=== PATIENT | female | born 1955 | race Caucasian/White ===

== ENCOUNTER 2020-03-20 19:50 | Inpatient (IN) | payer OTHER, SELFPAY ==
[2020-03-20] VITALS (46 sets, daily range): BP systolic 116–150; BP diastolic 73–88; PULSE 74–89; RESP 12–33; TEMP 36.9; O2SAT 89–95; BMI 27.8
--- NOTE | 2020-03-20 21:35 | PM.HP ---
Providers/Chief Complaint Admitting Physician: Martin Hernandez MD Primary Care Provider: BRAULIO Hughes Chief Complaint: covid pneumonia History of Present Illness Nuris Kern is a 64 year old female who presented to the hospital from [facility] for management of hypoxic respiratory failure due to COVID-19. Patient is stating that her symptoms started about 12 days ago, she started noticing fever 103 which was associated with chills, rigors, myalgia, she has been experiencing diarrhea, and last 3 to 4 days she started experiencing vomiting, her shortness of breath started getting worse, her fever consistently stayed between 10 1-1 03F at home. She is also experiencing pleuritic chest pain which gets worse on taking deep breath, she is denying orthopnea, PND, substernal chest pain. Because of these concerns she went to the ER at [facility], he was saturating 82% on room air, 6 L nasal cannula supplemental oxygen improved her oxygenation to 92%, she was tachypneic, fever 102 Fahrenheit was noticed Documentation reviewed from the outside facility, mild hyponatremia, influenza antigen negative, Covid antigen positive, D-dimer 0.8, normal BUN/creatinine, mild leukopenia Chest x-ray showed bilateral groundglass opacity Review of Systems Const: Reports: fever(s), chills, body aches, change in appetite, fatigue and malaise Eyes: Denies: change in vision ENMT: Denies: throat pain Card: Reports: chest pain and dyspnea on exertion Resp: Reports: dyspnea, non-productive cough and pain on inspiration GI: Reports: nausea and diarrhea : Denies: flank pain, urinary frequency or dribbling Musc: Reports: extremity pain and muscle cramps Skin/Breast: Denies: rash Neuro: Denies: headache(s) Psych: Denies: anxiety Endo: Denies: polyuria Pete/Lymph: Denies: easy bruising All/Imm: Denies: urticaria Medications/Allergies Home Medications Medication Instructions Recorded Confirmed Last Taken Type cholecalciferol (vitamin D3) 125 mcg PO DAILY 03/20/20 03/20/20 Unknown History [Vitamin D3] docusate sodium [Colace] 100 mg PO DAILY 03/20/20 03/20/20 Unknown History lisinopril 20 mg PO BID 03/20/20 03/20/20 Unknown History loratadine 10 mg PO BEDTIME 03/20/20 03/20/20 Unknown History melatonin 5 mg PO BEDTIME 03/20/20 03/20/20 Unknown History Allergies Allergy/AdvReac Type Severity Reaction Status Date / Time acetaminophen [From Tylenol] Allergy Unknown Verified 03/20/20 21:25 aspirin Allergy Unknown Verified 03/20/20 21:26 codeine Allergy Unknown Verified 03/20/20 21:26 Penicillins Allergy Unknown Verified 03/20/20 21:26 PFSH Acute PFSH: Medical History Hypertension Intermittent headache SVT (supraventricular tachycardia) Surgical History H/O cardiac radiofrequency ablation H/O: hysterectomy History of appendectomy History of bunionectomy Hx of tonsillectomy Family History Sister Cerebral aneurysm Social History Smoking and tobacco status: former smoker Quit status (tobacco): has quit using tobacco Year quit tobacco: 37-year pack history Alcohol intake: never Substance/Drug Use: never Household members: spouse Vitals/I&O/Wt Last Vital Signs Pulse 78 03/20/20 21:25 Resp 19 H 03/20/20 21:25 BP 119/74 03/20/20 21:25 Pulse Ox 93 03/20/20 21:25 Weight last 48 hrs Weight 93.3 kg Physical Exam Narrative: EXAM NARRATIVE: Middle-age female who was lying comfortable in her bed saturating above 92% on 6 L nasal cannula No acute respite distress, she was able to converse it without any dyspnea No cyanosis S1, S2 sinus rhythm no signs of heart failure No murmur appreciated Bilateral breath sounds with mild rhonchi noticed on expiration, patient does get chest discomfort on taking deep breathing Mild signs of dehydration Abdomen soft nontender bowel sounds present Lower extremity no edema gangrene or ulcer Neurologically nonfocal exam GCS 15 alert awake alert x3 Appropriate mood and affect No joint swelling A&P Assessment and plan (1) Acute respiratory failure with hypoxia: Status: Acute (2) Pneumonia due to COVID-19 virus: Status: Acute Additional A&P Information Sepsis with acute hypoxia Secondary to COVID-19 pneumonia Criteria met with fever and tachypnea Would request procalcitonin level D-dimer 0.8, would request CTA chest to rule out PE Atrovent and ipratropium inhalation regimen Continue vitamin C, zinc Decadron and remdesivir regimen History of hypertension: Currently she is normotensive I will reduce her lisinopril dose to 10 mg twice a day instead of 20 mg Patient looks clinically dehydrated, I would continue her cardiac diet would avoid giving fluids for now History of SVT status post ablation currently she is in sinus rhythm heart rate in 80s, complaining of pleuritic chest pain, with follow-up with CTA chest Full code Cardiac diet DVT prophylaxis Lovenox Attestations Medical Necessity Statement*: Anticipating stay in the hospital cross more than 2 midnights currently need management for sepsis, hypoxia, currently awaiting CT results Time Spent in Patient Care: (>than 50% of time spent in counselling and/or direct pt care on unit). 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
--- NOTE | 2020-03-20 22:30 | CTR_ITS ---
PROCEDURE INFORMATION: Exam: CT Angiography Chest With Contrast Exam date and time: 03/20/2020 10:31 PM Age: 64 years old Clinical indication: Patient HX: Covid pneumonia; Additional info: Pe TECHNIQUE: Imaging protocol: Computed tomographic angiography of the chest with intravenous contrast. 3D rendering (Not supervised by radiologist): MIP and/or 3D reconstructed images were created by the technologist. Radiation optimization: All CT scans at this facility use at least one of these dose optimization techniques: automated exposure control; mA and/or kV adjustment per patient size (includes targeted exams where dose is matched to clinical indication); or iterative reconstruction. Contrast material: OMNI 350; Contrast volume: 80 ml; Contrast route: INTRAVENOUS (IV); COMPARISON: No relevant prior studies available. RADIATION DOSE METRICS: Total DLP (mGy-cm): 525.73 FINDINGS: Pulmonary arteries: Normal. No pulmonary emboli. Aorta: Unremarkable. No aortic aneurysm. No aortic dissection. Lungs: There is a background of severe centrilobular emphysema and pulmonary fibrosis. There are ground-glass opacities present within the hemithoraces bilaterally, left more prominent than right, findings suggesting a superimposing interstitial pneumonitis. There is bilateral bronchiectasis. Pleural space: Unremarkable. No pneumothorax. No pleural effusion. Heart: Unremarkable. No cardiomegaly. No pericardial effusion. Lymph nodes: There are mildly prominent mediastinal and hilar lymph nodes present that are below CT criteria for lymphadenopathy. However these could represent reactive lymph nodes. Liver: There is hypoattenuation of the hepatic parenchyma compatible with fatty infiltration. Spleen: Punctate calcifications are seen within the spleen compatible with calcified granulomas. Bones/joints: Unremarkable. No acute fracture. Soft tissues: Unremarkable. CT/CT angio chest PE protcl [id number] IMPRESSION: 1. There is no evidence for for pulmonary emboli. 2. Ground-glass opacities are seen in the hemithoraces bilaterally, left prominent than right suggesting an interstitial pneumonitis superimposed over the patient's baseline severe centrilobular emphysema, bronchiectasis and pulmonary fibrosis. Patient has a history of COVID-19 pneumonia. 3. Probable mild reactive mediastinal and hilar lymphadenitis 4. Fatty infiltration of the liver Radiation Dose CTDIVOL = (mGy): DLP = 525.73 (mGy-cm)
[2020-03-20] MEDS: remdesivir 200 MG in sodium chloride 0.9% (100 ml) 100 ML 100 MG IV (22:31)
[2020-03-20] MEDS: ipratropium-albuterol 3 mL Neb INHALATION (23:02)
[2020-03-20] MEDS: iohexol 350 mg/mL 100 mL Btl IV (23:26)
[2020-03-20 23:41] LABS: Glucose Urine UA Norm (Normal); Ketones Urine Negative (Negative); Protein Urine Neg (Negative); Specific Gravity, Urine 1.015 (1.005-1.030); Urine Color Yellow (Yellow); pH Urine 5 (5-7)
[2020-03-20 23:42] LABS: Add Urine Microscopic? YES; Bilirubin Urine Neg (Negative); Blood Urine 2+ (Negative); Leukocyte Esterase Urine 2+ (Negative); Nitrate Urine Negative (Negative); Urobilinogen Urine Norm (Negative)
[2020-03-21] VITALS (50 sets, daily range): BP systolic 102–152; BP diastolic 69–107; PULSE 70–95; RESP 2–41; TEMP 36.8–37; O2SAT 78–95
[2020-03-21 00:02] LABS: Add Urine Culture? No; Bacteria Urine 4+ /hpf; Squamous Epithelial Cell Urine 15-25 /hpf (0-5)
[2020-03-21] MEDS: ipratropium-albuterol 3 mL Neb INHALATION ×5 (04:10→20:05)
[2020-03-21 05:05] LABS: Basophils % 0.3 %; Hematocrit 39.8 % (37.0-47.0); Lymphocytes # 1.1 10^3/uL (0.8-4.8); Lymphocytes % 36.6 %; Mean Corpuscular HGB Conc 32.7 g/dL (30.0-36.0); Mean Corpuscular Hemoglobin 29.1 pg (28.0-34.0); Monocytes # 0.3 10^3/uL (0.2-0.9); Monocytes % 10.5 %; Neutrophils % 52.3 %; Nucleated Red Blood Cells % 0 %; Platelet Count 184 10^3/cmm (130-400); Red Blood Count 4.47 10^6/uL (4.1-5.3); Red Cell Distribution Width 13.7 % (12.1-15.1); White Blood Count 2.9 10^3/uL (4.0-10.0)
[2020-03-21 05:34] LABS: Procalcitonin 0.08 ng/mL (0-0.5); Thyroid Stimulating Hormone 1.64 uIU/mL (0.27-4.20)
[2020-03-21 05:45] LABS: Alanine Aminotransferase 39 U/L (0-33); Albumin Level 3.5 g/dL (3.5-5.2); Alkaline Phosphatase 51 IU/L (35-105); Anion Gap 14.8 (5-19); Aspartate Amino Transferase 39 U/L (0-32); Blood Urea Nitrogen 13 mg/dL (8-23); Calcium 8.3 mg/dL (8.5-10.5); Carbon Dioxide 23 mmol/L (22-29); Chloride 106 mmol/L (98-107); Globulin 2.8 g/dL (1.3-4.6); Glomerular Filtration Rate 84.5 mL/min (90-130); Glucose 105 mg/dL (65-115); Osmolality Calculated 290 mOsm/kg (285-295); Potassium 3.8 mmol/L (3.5-5.1); Sodium 140 mmol/L (136-145); Total Bilirubin 0.3 mg/dL (0.15-1.2); Total Protein 6.3 g/dL (6.6-8.7)
[2020-03-21 05:50] LABS: INR 0.93 (0.8-1.2)
--- NOTE | 2020-03-21 06:08 | XRR_ITS ---
PROCEDURE INFORMATION: Exam: XR Chest, 1 View Exam date and time: 03/21/2020 7:42 AM Age: 64 years old Clinical indication: Shortness of breath; Additional info: Pna TECHNIQUE: Imaging protocol: XR of the chest Views: 1 view. COMPARISON: CT angio chest PE protcl [id number] 03/20/2020 11:10 PM FINDINGS: Lungs: Interstitial and asymmetric left-sided airspace disease. Pleural space: Questionable small left pleural effusion. Heart/Mediastinum: Cardiac silhouette upper limits of normal in size. Bones/joints: Osteopenia and degenerative change. XR/XR chest 1V portable [id number] IMPRESSION: Interstitial and asymmetric left-sided airspace disease.
--- NOTE | 2020-03-21 09:18 | P.PN_ITS ---
Subjective Subjective: Interval history: Patient is still extremely short of breath and she desaturates on minimal exertion. Her other vitals and labs have been reviewed. Medications: Reviewed: Yes Vitals/I&O/Wt Last Vital Signs Temp 98.4 F 03/21/20 04:00 Pulse 70 03/21/20 08:44 Resp 2 L 03/21/20 08:44 BP 143/90 03/21/20 08:00 Pulse Ox 93 03/21/20 08:44 03/20/20 03/21/20 03/21/20 22:59 06:59 14:59 Intake Total 1000 / 1000 575 / 1575 240 / 240 Balance 1000 / 1000 575 / 1575 240 / 240 Weight last 48 hrs Weight 94.9 kg Weight 93.3 kg Physical Exam Const: COMMON NORMALS: patient oriented x3 HENMT: COMMON NORMALS: normocephalic and atraumatic HEAD & SCALP: normocephalic and atraumatic Chest: COMMONS NORMALS: normal inspection of the chest Resp: OTHER: B/L Basal crackles Present in both alvarado Cardio: COMMON NORMALS: regular rate, regular rhythm, S1 normal heart sound present, S2 normal heart sound present, No gallops present (Cardio), No murmurs present (Cardio), No rub (Cardio) and Peripheral pulses 2+ throughout RATE: regular rate RHYTHM: regular rhythm HEART SOUNDS: S1 normal heart sound present and S2 normal heart sound present PERIPHERAL PULSES: Peripheral pulses 2+ throughout GI: COMMON NORMALS: Normal to inspection, nondistended, normoactive bowel sounds present, Soft to palpation, non-tender, No hepatosplenomegaly present and no masses AUSCULTATION: Yes normoactive bowel sounds PALPATION: Yes Soft to palpation and Yes No hepatosplenomegaly present RECTAL EXAM: deferred Extremity: COMMON NORMALS: no clubbing, cyanosis or edema and no pedal edema Neuro: COMMON NORMALS: patient oriented x3 Data : 03/21/20 04:30 03/21/20 04:30 A&P Assessment and plan (1) Acute respiratory failure with hypoxia: ARF with Hypoxia 2/2 COVID PNA with possible superimposed bacterial PNA. CTA Chest : No P.E ,Ground-glass opacities are seen in the hemithoraces bilaterally, left prominent than right suggesting an interstitial pneumonitis superimposed over the patient's baseline severe centrilobular emphysema, bronchiectasis and pulmonary fibrosis. D-Dimer Trend: Ferritin ESR CRP Lactic acid Procal Follow Cultures ABG Xray chest Plan 5 days Course of Remdesevir ( 03/20-03/24 ) 10 day Course of Dexamethasone 6 mg I.V daily Eliquis 2.5 mg q12 h daily Levofloxacin 750 mg i.v Daily Ascorbic Acid : 500 mg po daily Zinc Gluconate 50 mg po daily Nebs Lasix as needed to facilitate Dr lung ventilation. 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
[2020-03-21] MEDS: ascorbic acid 500 mg Tablet PO (09:50)
[2020-03-21] MEDS: dexamethasone 4 mg/mL INJ 6 MG IVP (09:50)
[2020-03-21] MEDS: FUROsemide 10 mg/mL SDV 4mL 40 MG IVP (09:51)
[2020-03-21] MEDS: levofloxacin-dextrose 5 % 750 MG/150 ML PREMIX 100 MG IV (09:51)
[2020-03-21] MEDS: zinc gluconate 50 mg Tablet PO (09:51)
[2020-03-21] MEDS: enoxaparin 40 mg/0.4 mL Syringe SUBCUT (09:51)
[2020-03-21] MEDS: guaiFENesin 100 mg/5 mL UDC 10 mL 400 MG PO (09:52)
--- NOTE | 2020-03-21 10:53 | USR_ITS ---
PROCEDURE INFORMATION: Exam: US Duplex Lower Extremity Veins, Bilateral Exam date and time: 03/21/2020 3:45 PM Age: 64 years old Clinical indication: Other: Shortness of breath; Additional info: Dvt TECHNIQUE: Imaging protocol: Real-time duplex ultrasound of the extremities with 2-D baltazar scale, color Doppler flow and spectral waveform analysis with image documentation. Complete exam focused on the bilateral lower extremity veins. Total images: [id number] COMPARISON: No relevant prior studies available. FINDINGS: Right deep veins: Unremarkable. The common femoral, femoral, proximal profunda femoral and popliteal veins are patent without thrombus. Normal Doppler waveforms. Normal compressibility and/or augmentation response. Right superficial veins: Saphenofemoral junction is patent without thrombus. Left deep veins: Unremarkable. The common femoral, femoral, proximal profunda femoral and popliteal veins are patent without thrombus. Normal Doppler waveforms. Normal compressibility and/or augmentation response. Left superficial veins: Saphenofemoral junction is patent without thrombus. Soft tissues: Unremarkable. US/CV venous duplex [facility] [id number] IMPRESSION: No evidence of deep vein thrombosis.
[2020-03-21] MEDS: apixaban 5 mg Tablet 2.5 MG PO (18:27)
[2020-03-21] MEDS: remdesivir 100 MG in sodium chloride 0.9% (100 ml) 100 ML IV (18:27)
[2020-03-21] MEDS: LORazepam 0.5 mg Tablet 1 MG PO (23:15)
[2020-03-22] VITALS (40 sets, daily range): BP systolic 108–159; BP diastolic 67–104; PULSE 76–102; RESP 14–31; TEMP 36.7–37.4; O2SAT 82–96
[2020-03-22] MEDS: levalbuterol 0.63 mg/3 mL Neb INHALATION ×6 (03:12→23:32)
--- NOTE | 2020-03-22 03:40 | PC.NURSE ---
Patient ambulated with RT et was unable to maintain SpO2 on 6 L nasal cannula. RT placed patient on high flow nasal cannula at 8L, then without improvement went up to 12. Patient still did not improve et the physician was notified. Order to place patient on heated high flow was given. RT placed patient on 35 L with 75% FiO2. Will continue to monitor.
--- NOTE | 2020-03-22 04:04 | PC.RESP ---
patient got up to go to the bathroom. Patient came back and was placed on her 6LPM NC. sats were 84%. Therapist changed patient to a high flow nasal cannula. Sats stayed 84-85% on 8LPM, 10LPM, and 12LPM. Therapist called Dr. Hernandez, therapist explained what was going on. stated to put patient on Heated High Flow. Therapist placed patient on Heated High Flow of 35L and 75%, sats are 91% at this time.
[2020-03-22 06:32] LABS: Basophils % 0.2 %; Hematocrit 37.9 % (37.0-47.0); Hemoglobin 12.9 g/dL (11.5-15.3); Lymphocytes # 1.1 10^3/uL (0.8-4.8); Lymphocytes % 23.3 %; Mean Corpuscular Hemoglobin 29.3 pg (28.0-34.0); Mean Corpuscular Volume 86.1 fL (81-99); Mean Platelet Volume 9.8 fL (7.4-10.4); Monocytes # 0.4 10^3/uL (0.2-0.9); Monocytes % 8.6 %; Neutrophils % 67.5 %; Nucleated Red Blood Cells % 0 %; Platelet Count 232 10^3/cmm (130-400); Red Cell Distribution Width 13.5 % (12.1-15.1); White Blood Count 4.9 10^3/uL (4.0-10.0)
[2020-03-22 06:50] LABS: Alanine Aminotransferase 41 U/L (0-33); Albumin Level 3.7 g/dL (3.5-5.2); Alkaline Phosphatase 57 IU/L (35-105); Anion Gap 17.7 (5-19); Aspartate Amino Transferase 40 U/L (0-32); Blood Urea Nitrogen 18 mg/dL (8-23); Calcium 8.7 mg/dL (8.5-10.5); Carbon Dioxide 21 mmol/L (22-29); Chloride 99 mmol/L (98-107); Glomerular Filtration Rate 84.5 mL/min (90-130); Glucose 97 mg/dL (65-115); Osmolality Calculated 280 mOsm/kg (285-295); Potassium 3.7 mmol/L (3.5-5.1); Sodium 134 mmol/L (136-145); Total Bilirubin 0.4 mg/dL (0.15-1.2)
--- NOTE | 2020-03-22 07:30 | PM.PN ---
Subjective Subjective: Interval history: is extremely short of breath. Her supplemental oxygen requirement has gone up.She failed HFONC and had to be switched to HHFONC ( 35Ls @ 70 % FIO2 ). She has remained afebrile. Her other vitals and labs have been reviewed. Medications: Reviewed: Yes Vitals/I&O/Wt Last Vital Signs Temp 99.3 F 03/22/20 00:00 Pulse 92 03/22/20 06:00 Resp 18 03/22/20 04:03 BP 150/89 03/22/20 04:00 Pulse Ox 91 03/22/20 04:03 03/21/20 03/22/20 03/22/20 22:59 06:59 14:59 Intake Total 100 / 675 1000 / 1675 Balance 100 / 675 1000 / 1675 Weight last 48 hrs Weight 94.886 kg Weight 94.9 kg Weight 93.3 kg Physical Exam Const: COMMON NORMALS: patient oriented x3 HENMT: COMMON NORMALS: normocephalic and atraumatic HEAD & SCALP: normocephalic and atraumatic Chest: COMMONS NORMALS: normal inspection of the chest Resp: OTHER: B/L Basal crackles Present in both alvarado Cardio: COMMON NORMALS: regular rate, regular rhythm, S1 normal heart sound present, S2 normal heart sound present, No gallops present (Cardio), No murmurs present (Cardio), No rub (Cardio) and Peripheral pulses 2+ throughout RATE: regular rate RHYTHM: regular rhythm HEART SOUNDS: S1 normal heart sound present and S2 normal heart sound present PERIPHERAL PULSES: Peripheral pulses 2+ throughout GI: COMMON NORMALS: Normal to inspection, nondistended, normoactive bowel sounds present, Soft to palpation, non-tender, No hepatosplenomegaly present and no masses AUSCULTATION: Yes normoactive bowel sounds PALPATION: Yes Soft to palpation and Yes No hepatosplenomegaly present RECTAL EXAM: deferred Extremity: COMMON NORMALS: no clubbing, cyanosis or edema and no pedal edema Neuro: COMMON NORMALS: patient oriented x3 Data : 03/22/20 05:50 03/22/20 05:50 Micro: Microbiology 03/21/20 12:50 Blood Culture - Preliminary Blood SPECIMEN COLLECTED 03/21/20 12:55 Blood Culture - Preliminary Blood SPECIMEN COLLECTED A&P Assessment and plan (1) Acute respiratory failure with hypoxia: ARF with Hypoxia 2/2 COVID PNA with possible superimposed bacterial PNA. CTA Chest : No P.E ,Ground-glass opacities are seen in the hemithoraces bilaterally, left prominent than right suggesting an interstitial pneumonitis superimposed over the patient's baseline severe centrilobular emphysema, bronchiectasis and pulmonary fibrosis. B/L L/E Doppler Vein :Negative for DVT D-Dimer Trend: Ferritin: ESR: CRP: Lactic acid: Procal: 0.08 Blood Cultures:NTD Urine Legionella: Urine bacterial Antigen: ABG; Xray chest: Plan 5 days Course of Remdesevir ( 03/20-03/24 ) 10 day Course of Dexamethasone 6 mg I.V daily Eliquis 2.5 mg q12 h daily Levofloxacin 750 mg i.v Daily Ascorbic Acid : 500 mg po daily Zinc Gluconate 50 mg po daily Nebs Plan for Convalasent Plasma ( 2 bags ) Lasix as needed to facilitate Dr lung ventilation. 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
[2020-03-22] MEDS: levofloxacin-dextrose 5 % 750 MG/150 ML PREMIX 100 MG IV (08:18)
[2020-03-22] MEDS: apixaban 5 mg Tablet 2.5 MG PO ×2 (08:20→18:40)
[2020-03-22] MEDS: ascorbic acid 500 mg Tablet PO (08:21)
[2020-03-22] MEDS: zinc gluconate 50 mg Tablet PO (08:22)
[2020-03-22] MEDS: dexamethasone 4 mg/mL INJ 6 MG IVP (08:23)
[2020-03-22] MEDS: LORazepam 2 mg Tablet PO ×2 (14:30→20:59)
[2020-03-22] MEDS: FUROsemide 10 mg/mL SDV 2mL 20 MG IVP (16:02)
[2020-03-22] MEDS: remdesivir 100 MG in sodium chloride 0.9% (100 ml) 100 ML IV (18:41)
--- NOTE | 2020-03-22 19:36 | PC.NURSE ---
Shift SUmmary- Uneventful day. Patient will be getting convalescent plasma, but waiting on blood bank at time of this note. Patient has refused famotadine and lisinopril throughout the day and has been informed of risks form not taking meds. Patient is very capable when it comes to ambulating.
[2020-03-23] VITALS (36 sets, daily range): BP systolic 95–146; BP diastolic 63–101; PULSE 76–106; RESP 13–30; TEMP 36.4–37.2; O2SAT 74–96
[2020-03-23] MEDS: FUROsemide 10 mg/mL SDV 2mL 20 MG IVP ×2 (00:44→06:31)
[2020-03-23] MEDS: levalbuterol 0.63 mg/3 mL Neb INHALATION ×3 (03:21→11:15)
[2020-03-23 04:23] LABS: Basophils % 0.2 %; Hematocrit 39.2 % (37.0-47.0); Hemoglobin 13.3 g/dL (11.5-15.3); Lymphocytes % 17.4 %; Mean Corpuscular HGB Conc 33.9 g/dL (30.0-36.0); Mean Corpuscular Hemoglobin 29.3 pg (28.0-34.0); Mean Corpuscular Volume 86.3 fL (81-99); Mean Platelet Volume 9.5 fL (7.4-10.4); Monocytes # 0.5 10^3/uL (0.2-0.9); Monocytes % 8.5 %; Neutrophils # 4.08 10^3/uL (1.8-7.7); Neutrophils % 73.7 %; Nucleated Red Blood Cells % 0 %; Platelet Count 255 10^3/cmm (130-400); Red Blood Count 4.54 10^6/uL (4.1-5.3); Red Cell Distribution Width 13.5 % (12.1-15.1); White Blood Count 5.5 10^3/uL (4.0-10.0)
[2020-03-23 04:45] LABS: Alanine Aminotransferase 37 U/L (0-33); Albumin Level 3.6 g/dL (3.5-5.2); Alkaline Phosphatase 56 IU/L (35-105); Anion Gap 15.6 (5-19); Aspartate Amino Transferase 30 U/L (0-32); Blood Urea Nitrogen 17 mg/dL (8-23); C Reactive Protein 21.8 mg/L (0.0-4.9); Calcium 9.5 mg/dL (8.5-10.5); Carbon Dioxide 23 mmol/L (22-29); Chloride 97 mmol/L (98-107); Globulin 3.2 g/dL (1.3-4.6); Glomerular Filtration Rate 84.5 mL/min (90-130); Glucose 109 mg/dL (65-115); Osmolality Calculated 276 mOsm/kg (285-295); Potassium 3.6 mmol/L (3.5-5.1); Sodium 132 mmol/L (136-145); Total Bilirubin 0.5 mg/dL (0.15-1.2); Total Protein 6.8 g/dL (6.6-8.7)
[2020-03-23 05:26] LABS: D Dimer 0.79 ug/mIFEU (0-0.59)
[2020-03-23 05:51] LABS: Ferritin 1191 ng/mL (15-150)
--- NOTE | 2020-03-23 06:20 | XR_ITS ---
WS: [id number] Exam: XR chest 1V portable [id number] Date/Time of Exam: 03/23/2020 6:20 AM Reason For Exam: pna Comparison 03/21/2020. Increasing patchy groundglass infiltrates identified in the mid lower bilateral lung zones. Superimpo sed chronic interstitial changes are noted. Normal cardiomediastinal structures and bony elements. No pleural effusions or pneumothorax. XR/XR chest 1V portable [id number] IMPRESSION: 1. Increasing airspace opacities in the mid and lower bilateral lung zone since prior study. There are also superimposed chronic interstitial changes noted th roughout both lungs.
[2020-03-23] MEDS: levofloxacin-dextrose 5 % 750 MG/150 ML PREMIX 150 MG IV (06:30)
[2020-03-23 06:46] LABS: Erythrocyte Sedimentation Rate 34 mm/hr (0-15)
[2020-03-23] MEDS: dexamethasone 4 mg/mL INJ 6 MG IVP (08:34)
[2020-03-23] MEDS: ascorbic acid 500 mg Tablet PO (08:35)
[2020-03-23] MEDS: lisinopril 20 mg Tablet 10 MG PO ×2 (08:35→17:24)
[2020-03-23] MEDS: apixaban 5 mg Tablet 2.5 MG PO (08:35)
[2020-03-23] MEDS: famotidine 20 mg Tablet PO (08:35)
[2020-03-23] MEDS: zinc gluconate 50 mg Tablet PO (08:36)
--- NOTE | 2020-03-23 13:58 | USCV_ITS ---
Nuris Kern Age: 64 Gender: F : 1955 Exam Date: 03/23/2020 15:50 Ordering Phys: Tom Mercedes MD Technologist: Murtaza Marrero Exam Location: [facility] [place] Indication: ARF BP: 146 / 101 HR: 87 Rhythm: Sinus Technical Quality: Fair MEASUREMENTS (Male / Female) Normal Values 2D ECHO LV Diastolic Diameter PLAX 4.1 cm 4.2 - 5.9 / 3.9 - 5.3 cm LV Systolic Diameter PLAX 2.4 cm IVS Diastolic Thickness 1.0 cm 0.6 - 1.0 / 0.6 - 0.9 cm IVS Systolic Thickness 1.4 cm LVPW Diastolic Thickness 0.9 cm 0.6 - 1.0 / 0.6 - 0.9 cm LVPW Systolic Thickness 1.3 cm LVOT Diameter 2.1 cm LV Ejection Fraction 2D Teich 72.3 % LV Ejection Fraction MOD 2C 61.6 % LV Ejection Fraction 2C AL 62.6 % LA Diameter 3.2 cm LA Width 3.9 cm LA Height 4.2 cm RA Width 2.6 cm RA Height 3.7 cm Aorta at Sinotubular Diameter 3.2 cm M-MODE LV Diastolic Diameter MM 4.6 cm 4.2 - 5.9 / 3.9 - 5.3 cm LV Systolic Diameter MM 3.2 cm LV Ejection Fraction MM Teich 58.5 % IVS Diastolic Thickness MM 1.3 cm 0.6 - 1.0 / 0.6 - 0.9 cm IVS Systolic Thickness MM 1.1 cm LVPW Diastolic Thickness MM 1.1 cm 0.6 - 1.0 / 0.6 - 0.9 cm LVPW Systolic Thickness MM 1.6 cm RV Diastolic Diameter MM 2.0 cm Aortic Annulus Diameter 3.6 cm LA Ao Ratio MM 0.9 MV E Point Septal Separation 0.8 cm DOPPLER AV Peak Velocity 178.0 cm/s LVOT Peak Velocity 107.0 cm/s AV Area Cont Eq vti 1.8 cm squared AV Area Cont Eq pk 2.0 cm squared MV Area PHT 5.0 cm squared Mitral E to A Ratio 0.8 MV E' Velocity 45.5 cm/s Mitral E to MV E' Ratio 8.8 Mitral E to LV E' Lateral Ratio 7.5 Mitral E to LV E' Septal Ratio 10.8 TR Peak Velocity 162.3 cm/s TR Peak Gradient 10.5 mmHg TV Peak E Velocity 85.0 cm/s Right Atrial Pressure 3.0 mmHg Pulmonary Artery Systolic Pressu 13.5 mmHg PV Peak Velocity 94.0 cm/s FINDINGS Left Ventricle Normal left ventricular size and systolic function with no regional wall motion abnormalities. Grade 1 diastolic dysfunction is seen. Right Ventricle The right ventricle is normal in size and function. Right Atrium The right atrium is normal in size. Left Atrium The left atrium is normal in size. Mitral Valve Structurally normal mitral valve without significant stenosis or prolapse. There is trace mitral regurgitation. Aortic Valve Structurally normal aortic valve without significant sclerosis or stenosis. There is trace aortic regurgitation. Tricuspid Valve Structurally normal tricuspid valve without significant stenosis or regurgitation. RVSP is 15 to 20 mmHg. Pulmonic Valve Structurally normal pulmonic valve without significant stenosis. There is mild pulmonic regurgitation. Pericardium Normal pericardium without effusion. Aorta Normal ascending aorta dimension. CONCLUSIONS LV systolic function is normal with EF of 55 to 60%. Grade 1 diastolic dysfunction is seen. Trace mitral regurgitation and trace aortic regurgitation seen. Mild pulmonic regurgitation. No comparison studies are available. Ankur Ramires MD (Electronically Signed) Final Date: 23 March 2020 18:40 S
--- NOTE | 2020-03-23 14:35 | P.PN_ITS ---
Subjective Subjective: Interval history: Hospital course, labs and vitals noted. On examination today patient is on heated high flow 80% 35 L saturating 92%. He has been doing incentive spirometry and flutter valve regularly. He has been semiproning himself during the day. He states he is feeling a lot better than yesterday. States his energy levels are still low. Appetite is still not at his baseline. Medications: Reviewed: Yes Vitals/I&O/Wt Last Vital Signs Temp 98.7 F 03/23/20 12:00 Pulse 95 03/23/20 12:00 Resp 26 H 03/23/20 12:00 BP 119/73 03/23/20 12:00 Pulse Ox 91 03/23/20 12:00 03/22/20 03/23/20 03/23/20 22:59 06:59 14:59 Intake Total 600 / 1230 509 / 1739 600 / 600 Output Total 1600 / 1600 0 / 0 Balance -1000 / -370 509 / 139 600 / 600 Weight last 48 hrs Weight 94.886 kg Physical Exam Narrative: EXAM NARRATIVE: General: No acute distress, AO x3, tired appearing HEENT: PERRLA, pupils bilaterally equal and reactive Chest: Bilateral occasional crackles present all over the lung alvarado, normal vesicular breath sounds CVS: S1-S2 regular, no murmurs, no tachycardia, no gallops, no rubs Abdomen: Soft, nontender, no organomegaly, bowel sounds present Neuro: No focal deficits, no facial deformity, AO x3, power 5/5 in all limbs Data : 03/23/20 04:05 03/23/20 04:05 Micro: Microbiology 03/21/20 15:45 Urine Culture - Final Urine,Clean Catch 03/21/20 12:50 Blood Culture - Preliminary Blood NEGATIVE TO DATE 03/21/20 12:55 Blood Culture - Preliminary Blood NEGATIVE TO DATE A&P Assessment and plan (1) Acute respiratory failure with hypoxia: Status: Acute (2) Pneumonia due to COVID-19 virus: Status: Acute (3) Sepsis: Status: Acute (4) HTN (hypertension): Status: Acute Additional A&P Information Acute respiratory failure with hypoxia because of COVID-19 pneumonia: Post CP treatment. Cannot rule out superadded bacterial infection though patient's white count is within normal limits. Check sputum culture, procalcitonin. Monitor inflammatory markers including CRP, LDH, proBNP, D-dimer, ferritin. X- ray appreciated. Continue remdesivir to finish a 5-day course. Dexamethasone 6 mg IV daily. As patient is on heated high flow we will put him on DuoNebs every 4 hours, Pulmicort twice daily. Aggressive pulmonary toilet. Tessalon Perles. Vitamin C, zinc. Wean off oxygen keeping saturation over 90%. Have advised patient to continue doing incentive spirometry and flutter valve regularly. Also discussed any proning in detail. For now continue levofloxacin at current dose. Will do a 5-day course. Urine Legionella, bacterial antigen. D-dimer elevated will increase the dose of Eliquis to 5 mg twice daily. Check echocardiogram. We will try to keep the patient on negative side. For now patient around 4 L positive since admission. Hypertension: Goal blood pressure less than 140/90 mmHg. For now continue with home dose of lisinopril. Diet: Cardiac. DVT PPX: On Eliquis 5 mg twice daily Code Status : Full code Disposition :Home Attestations Medical Necessity Statement*: Requires further hospitalization for management of hypoxic respiratory failure because of COVID-19 pneumonia. Time Spent in Patient Care: Greater than 35 minutes (>than 50% of time spent in counselling and/or direct pt care on unit) . Coding Level of Care Code Acute Speech Language Pathologist for Rich Wilkinson Diagnoses Acute respiratory failure with hypoxia J96.01 Pneumonia due to COVID-19 virus U07.1; J12.89 Sepsis A41.9 HTN (hypertension) I10
[2020-03-23 15:09] LABS: Procalcitonin 0.06 ng/mL (0-0.5)
[2020-03-23 15:19] LABS: Iron 28 ug/dL (37-145); Percent Saturation 12.3 % (20-50); Total Iron Binding Capacity 226 mcg/dl; Unsaturated Iron Binding 198 ug/dL (112-347)
[2020-03-23] MEDS: ipratropium-albuterol 3 mL Neb INHALATION ×2 (16:13→20:55)
[2020-03-23] MEDS: apixaban 5 mg Tablet PO (17:24)
[2020-03-23] MEDS: ascorbic acid 500 mg Tablet 1000 MG PO (17:24)
[2020-03-23] MEDS: ferrous gluconate 324 mg Tablet PO (17:25)
[2020-03-23] MEDS: LORazepam 2 mg Tablet 1 MG PO ×2 (17:26→21:37)
[2020-03-23] MEDS: remdesivir 100 MG in sodium chloride 0.9% (100 ml) 100 ML IV (17:28)
[2020-03-23 19:23] LABS: Total Protein 6.7 g/dL (6.6-8.7)
[2020-03-23] MEDS: budesonide 0.5 mg/2 mL Neb INHALATION (20:55)
[2020-03-24] VITALS (38 sets, daily range): BP systolic 100–106; BP diastolic 67–68; PULSE 73–114; RESP 18–29; TEMP 36.3–36.6; O2SAT 78–96
[2020-03-24] MEDS: FUROsemide 10 mg/mL SDV 2mL 20 MG IVP ×2 (00:10→08:56)
[2020-03-24] MEDS: ipratropium-albuterol 3 mL Neb INHALATION ×7 (00:42→23:36)
[2020-03-24 05:24] LABS: Basophils % 0.2 %; Hematocrit 37.5 % (37.0-47.0); Hemoglobin 12.6 g/dL (11.5-15.3); Lymphocytes # 0.8 10^3/uL (0.8-4.8); Lymphocytes % 15.2 %; Mean Corpuscular HGB Conc 33.6 g/dL (30.0-36.0); Mean Corpuscular Hemoglobin 29.4 pg (28.0-34.0); Mean Corpuscular Volume 87.6 fL (81-99); Mean Platelet Volume 9.6 fL (7.4-10.4); Monocytes # 0.5 10^3/uL (0.2-0.9); Monocytes % 9.4 %; Neutrophils # 3.88 10^3/uL (1.8-7.7); Neutrophils % 74.8 %; Nucleated Red Blood Cells % 0 %; Platelet Count 270 10^3/cmm (130-400); Red Blood Count 4.28 10^6/uL (4.1-5.3); Red Cell Distribution Width 13.6 % (12.1-15.1); White Blood Count 5.2 10^3/uL (4.0-10.0)
[2020-03-24 05:42] LABS: D Dimer 0.63 ug/mIFEU (0-0.59)
[2020-03-24 05:53] LABS: Estmated Average Glucose 117; Hemoglobin A1C 5.7 % (4.0-6.0)
[2020-03-24 05:59] LABS: C Reactive Protein 21.6 mg/L (0.0-4.9)
[2020-03-24 06:00] LABS: Alanine Aminotransferase 36 U/L (0-33); Albumin Level 3.6 g/dL (3.5-5.2); Alkaline Phosphatase 56 IU/L (35-105); Anion Gap 17.4 (5-19); Aspartate Amino Transferase 25 U/L (0-32); Blood Urea Nitrogen 17 mg/dL (8-23); Calcium 8.8 mg/dL (8.5-10.5); Carbon Dioxide 22 mmol/L (22-29); Chloride 99 mmol/L (98-107); Globulin 2.9 g/dL (1.3-4.6); Glomerular Filtration Rate 84.5 mL/min (90-130); Glucose 117 mg/dL (65-115); Osmolality Calculated 283 mOsm/kg (285-295); Potassium 3.4 mmol/L (3.5-5.1); Sodium 135 mmol/L (136-145); Total Bilirubin 0.5 mg/dL (0.15-1.2); Total Protein 6.5 g/dL (6.6-8.7)
--- NOTE | 2020-03-24 06:00 | XR_ITS ---
WS: [id number] Exam: XR chest 1V portable [id number] Date/Time of Exam: 03/24/2020 6:00 AM Reason For Exam: covid Comparison 03/23/2020. Bilateral pulmonary infiltrates show some improvement. There are superimposed chronic pulmonary reyes es. Heart size is stable. No pleural effusions or pneumothorax. The mediastinum and bony thorax are u nremarkable. XR/XR chest 1V portable [id number] IMPRESSION: 1. Improving airspace opacities in both lungs since prior study. Superimposed c hronic interstitial changes.
[2020-03-24 06:07] LABS: Chol HDL Ratio 5.08 mg/dL (0.0-4.40); Cholesterol 132 mg/dL (0-200); Creatine Phosphokinase 81 U/L (26-192); HDL Cholesterol 26 mg/dL (60-100); LDL Cholesterol Calculated 88 mg/dL (50-129); Lactate Dehydrogenase 295 U/L (135-214); NT Pro B Type Natriuretic Pept 30 pg/mL (0-125); Triglycerides 91 mg/dL (0-150); VLDL Cholestrol Calculation 18 mg/dL (0-30)
[2020-03-24 06:22] LABS: Erythrocyte Sedimentation Rate 32 mm/hr (0-15)
[2020-03-24] MEDS: levofloxacin-dextrose 5 % 750 MG/150 ML PREMIX 150 MG IV (06:40)
[2020-03-24 06:41] LABS: Fibrinogen 413 mg/dL (174-498)
[2020-03-24 07:23] LABS: Ferritin 973 ng/mL (15-150)
[2020-03-24] MEDS: budesonide 0.5 mg/2 mL Neb INHALATION ×2 (08:23→20:21)
[2020-03-24] MEDS: ferrous gluconate 324 mg Tablet PO ×2 (08:53→17:15)
[2020-03-24] MEDS: potassium chloride ER 20 mEq Tablet 40 MEQ PO (08:53)
[2020-03-24] MEDS: ascorbic acid 500 mg Tablet 1000 MG PO ×2 (08:55→17:16)
[2020-03-24] MEDS: zinc gluconate 50 mg Tablet PO (08:55)
[2020-03-24] MEDS: apixaban 5 mg Tablet PO ×2 (08:55→17:15)
[2020-03-24] MEDS: dexamethasone 4 mg/mL INJ 6 MG IVP (08:58)
[2020-03-24] MEDS: LORazepam 2 mg Tablet 1 MG PO ×3 (09:05→21:45)
--- NOTE | 2020-03-24 15:41 | P.PN_ITS ---
Subjective Subjective: Interval history: No events overnight. On examination patient sitting comfortably in bed reading a book. She saturating 94% on 30 L 60%. Denies any nausea, vomiting, headache. States her appetite is better energy levels are better today. Asking if she can take a bath today. Medications: Reviewed: Yes Vitals/I&O/Wt Last Vital Signs Temp 97.8 F 03/24/20 08:00 Pulse 97 03/24/20 15:00 Resp 24 H 03/24/20 15:00 BP 100/68 03/24/20 15:00 Pulse Ox 84 L 03/24/20 15:00 03/24/20 03/24/20 03/24/20 06:59 14:59 22:59 Intake Total 30 / 1220 360 / 360 Output Total 0 / 1700 Balance 30 / -480 360 / 360 Physical Exam Narrative: EXAM NARRATIVE: General: No acute distress, AO x3, tired appearing HEENT: PERRLA, pupils bilaterally equal and reactive Chest: Bilateral occasional crackles present all over the lung alvarado, normal vesicular breath sounds CVS: S1-S2 regular, no murmurs, no tachycardia, no gallops, no rubs Abdomen: Soft, nontender, no organomegaly, bowel sounds present Neuro: No focal deficits, no facial deformity, AO x3, power 5/5 in all limbs Data : 03/24/20 04:51 03/24/20 04:51 Micro: Microbiology 03/23/20 15:00 Bacterial Antigens - Final Urine,Voided A&P Assessment and plan (1) Acute respiratory failure with hypoxia: Status: Acute (2) Pneumonia due to COVID-19 virus: Status: Acute (3) Sepsis: Sepsis 2/2 PNA/UTI Status: Acute (4) HTN (hypertension): Status: Acute Additional A&P Information Acute respiratory failure with hypoxia because of COVID-19 pneumonia: Post CP treatment. Cannot rule out superadded bacterial infection though patient's white count is within normal limits. Check sputum culture, procalcitonin. Monitor inflammatory markers including CRP, LDH, proBNP, D-dimer, ferritin. X- ray appreciated. Wean off oxygen keeping saturation over 88%. Continue remdesivir to finish a 5-day course. Last day today. Dexamethasone 6 mg IV daily. As patient is on heated high flow we will put him on DuoNebs every 4 hours, Pulmicort twice daily. Aggressive pulmonary toilet with incentive spirometry and flutter valve. Tessalon Perles. Vitamin C, zinc. Wean off oxygen keeping saturation over 90%. Have advised patient to continue doing incentive spirometry and flutter valve regularly. Also discussed semi- proning in detail. For now continue levofloxacin at current dose. Day 4/5 of course today. Legionella, bacterial antigen negative. Continue Eliquis 5 mg twice daily. Echocardiogram done and results are appreciated. Consistent with diastolic dysfunction with a normal EF and no regional wall motion of normality with RVSP of 15 to 20 mmHg. We will try to keep patient negative. Give patient 20 mg IV Lasix once today. Hypertension: Goal blood pressure less than 140/90 mmHg. For now continue with home dose of lisinopril. Diet: Cardiac. DVT PPX: On Eliquis 5 mg twice daily Code Status : Full code Disposition :Home versus LTAC. Patient still requiring high amount of oxygen supplementation with heated high flow to maintain saturations over 90%. We will continue with the current treatment and if oxygen supplementation is not resolving then will discuss with patient for possible transfer to LTAC for prolonged pulmonary rehabilitation while oxygen supplementation is weaned off. Attestations Medical Necessity Statement*: Requires further hospitalization for management of respiratory failure because of COVID-19 pneumonia Time Spent in Patient Care: Greater than 35 minutes (>than 50% of time spent in counselling and/or direct pt care on unit) . Coding Level of Care Code Acute Hall Coordinator for Rich Wilkinson Diagnoses Acute respiratory failure with hypoxia J96.01 Pneumonia due to COVID-19 virus U07.1; J12.89 Sepsis A41.9 HTN (hypertension) I10
[2020-03-24] MEDS: remdesivir 100 MG in sodium chloride 0.9% (100 ml) 100 ML IV (17:16)
[2020-03-24] MEDS: benzonatate 100 mg Capsule PO (21:03)
[2020-03-25] VITALS (28 sets, daily range): BP systolic 100–121; BP diastolic 68–74; PULSE 75–110; RESP 17–30; TEMP 36.8–37.2; O2SAT 79–97
[2020-03-25] MEDS: ipratropium-albuterol 3 mL Neb INHALATION ×6 (03:14→23:46)
[2020-03-25 05:13] LABS: Fibrinogen 475 mg/dL (174-498)
[2020-03-25 05:32] LABS: C Reactive Protein 17.9 mg/L (0.0-4.9)
[2020-03-25 05:47] LABS: Creatine Phosphokinase 55 U/L (26-192); Ferritin 902 ng/mL (15-150); Lactate Dehydrogenase 310 U/L (135-214); NT Pro B Type Natriuretic Pept 40 pg/mL (0-125)
[2020-03-25 05:51] LABS: Erythrocyte Sedimentation Rate 28 mm/hr (0-15)
[2020-03-25] MEDS: levofloxacin-dextrose 5 % 750 MG/150 ML PREMIX 150 MG IV (08:13)
[2020-03-25] MEDS: ferrous gluconate 324 mg Tablet PO ×2 (08:16→16:46)
[2020-03-25] MEDS: apixaban 5 mg Tablet PO ×2 (08:16→16:46)
[2020-03-25] MEDS: ascorbic acid 500 mg Tablet 1000 MG PO ×2 (08:16→16:46)
[2020-03-25] MEDS: dexamethasone 4 mg/mL INJ 6 MG IVP (08:16)
[2020-03-25] MEDS: benzonatate 100 mg Capsule PO (08:16)
[2020-03-25] MEDS: zinc gluconate 50 mg Tablet PO (08:26)
[2020-03-25] MEDS: budesonide 0.5 mg/2 mL Neb INHALATION ×2 (08:27→20:24)
--- NOTE | 2020-03-25 10:50 | P.PN_ITS ---
Subjective Subjective: Interval history: No acute events overnight. On examination patient looks tired today laying comfortably in bed. Still requiring high flow oxygen to keep mentation to maintain saturation over 92%. Denies any nausea, vomiting, headache. States appetite is appropriate. States has had a comfortable restful night. Medications: Reviewed: Yes Vitals/I&O/Wt Last Vital Signs Temp 98.2 F 03/25/20 04:00 Pulse 100 03/25/20 10:00 Resp 22 H 03/25/20 10:00 BP 103/72 03/25/20 08:00 Pulse Ox 95 03/25/20 10:00 03/24/20 03/25/20 03/25/20 22:59 06:59 14:59 Intake Total 960 / 1470 270 / 270 Output Total 700 / 700 Balance 960 / 695 -430 / -430 Weight last 48 hrs Weight 94.937 kg Physical Exam Narrative: EXAM NARRATIVE: General: No acute distress, AO x3, tired appearing HEENT: PERRLA, pupils bilaterally equal and reactive Chest: Bilateral occasional crackles present all over the lung alvarado, normal vesicular breath sounds CVS: S1-S2 regular, no murmurs, no tachycardia, no gallops, no rubs Abdomen: Soft, nontender, no organomegaly, bowel sounds present Neuro: No focal deficits, no facial deformity, AO x3, power 5/5 in all limbs Data : 03/24/20 04:51 03/24/20 04:51 Other Labs: Other lab data ESR 28 from 32 D-dimer 0.5 from 0.63 Fibrinogen 475 Ferritin 902 from 973 LDH 310 from 295 CRP 17.9 from 21.6 proBNP 40 A&P Assessment and plan (1) Acute respiratory failure with hypoxia: Status: Acute (2) Pneumonia due to COVID-19 virus: Status: Acute (3) Sepsis: Sepsis 2/2 PNA/UTI Status: Acute (4) HTN (hypertension): Status: Acute Additional A&P Information Acute respiratory failure with hypoxia because of COVID-19 pneumonia: Post CP treatment. Procalcitonin negative, urinary Legionella and bacterial antigen negative. Sputum culture awaited. Monitor inflammatory markers including CRP, LDH, proBNP, D-dimer, ferritin and trending down. Wean off oxygen keeping saturation over 88%. Still requiring heated high flow though. Finished remdesivir 5-day course on March 24. Dexamethasone 6 mg IV daily. As patient is on heated high flow continue with DuoNebs every 4 hours, Pulmicort twice daily. Aggressive pulmonary toilet with incentive spirometry and flutter valve. Prone to semiprone when possible. Tessalon Perles. Vitamin C, zinc. Last day of levofloxacin today. Patient has remained afebrile without any leukocytosis with infectious work-up negative for now. Continue Eliquis 5 mg twice daily. Echocardiogram done and results are appreciated. Consistent with diastolic dysfunction with a normal EF and no regional wall motion of normality with RVSP of 15 to 20 mmHg. We will try to keep patient negative. Repeat Lasix 40 mg today. Patient overall 3.5 L positive since admission as per the chart. Strict input output charting, daily weights. Hypertension: Goal blood pressure less than 140/90 mmHg. For now continue with home dose of lisinopril. Diet: Cardiac. DVT PPX: On Eliquis 5 mg twice daily Code Status : Full code Disposition :Home versus LTAC. As patient is still requiring high oxygen supplementation to maintain saturation over 88 to 90% discussed in detail with both patient and her regarding possible discharge to LTAC for further pulmonary rehabilitation as she will need prolonged pulmonary rehab before she can be discharged back home. has agreed for the same though patient states she would want to think about it some more. Did discuss with the patient for now that she does not qualify for LTAC as well as she is requiring more than 80% of FiO2 to maintain her saturations and she needs to be requiring less than 60%. We will continue to monitor. Attestations Medical Necessity Statement*: Requires further hospitalization for management of acute hypoxic respiratory failure from COVID-19 pneumonia. Time Spent in Patient Care: Greater than 35 minutes (>than 50% of time spent in counselling and/or direct pt care on unit) . Coding Level of Care Code Acute Research Animal Attendant for Rich Wilkinson Diagnoses Acute respiratory failure with hypoxia J96.01 Pneumonia due to COVID-19 virus U07.1; J12.89 Sepsis A41.9 HTN (hypertension) I10
--- NOTE | 2020-03-25 11:06 | PC.NURSE ---
PATIENT REFUSES TO TAKE HER MORNING DOSES OF LISINOPRIL AND PROTONIX. STATES THEY ARE NOT NEEDED AFTER NURSE EDUCATED ABOUT THESE MEDICATIONS.
[2020-03-25] MEDS: potassium chloride ER 20 mEq Tablet 40 MEQ PO (11:27)
[2020-03-25] MEDS: FUROsemide 10 mg/mL SDV 4mL 40 MG IVP (11:27)
[2020-03-25] MEDS: LORazepam 2 mg Tablet 1 MG PO ×2 (16:46→20:49)
[2020-03-26] VITALS (25 sets, daily range): BP systolic 109–121; BP diastolic 71–90; PULSE 71–130; RESP 13–28; TEMP 36.8–37; O2SAT 80–95
[2020-03-26 04:23] LABS: Basophils % 0.1 %; Eosinophils % 0.1 %; Hematocrit 39.5 % (37.0-47.0); Hemoglobin 13.1 g/dL (11.5-15.3); Lymphocytes # 0.9 10^3/uL (0.8-4.8); Lymphocytes % 10.4 %; Mean Corpuscular HGB Conc 33.2 g/dL (30.0-36.0); Mean Corpuscular Volume 87.4 fL (81-99); Mean Platelet Volume 9.7 fL (7.4-10.4); Monocytes # 0.5 10^3/uL (0.2-0.9); Monocytes % 6.6 %; Neutrophils # 6.68 10^3/uL (1.8-7.7); Neutrophils % 81.9 %; Nucleated Red Blood Cells % 0 %; Platelet Count 399 10^3/cmm (130-400); Red Blood Count 4.52 10^6/uL (4.1-5.3); Red Cell Distribution Width 13.3 % (12.1-15.1); White Blood Count 8.2 10^3/uL (4.0-10.0)
[2020-03-26] MEDS: ipratropium-albuterol 3 mL Neb INHALATION ×5 (04:37→20:33)
[2020-03-26 04:44] LABS: ABG PH Result 7.48 (7.35-7.45); Alveolar-Arterial Oxygen Gradi 62.8 mmHg (5-10); Arterial Blood Gas Hematocrit 46.1 % (37-47); Base Excess ABG 2.8 mmol/L (-2.0-2.0); Blood Gas Allen Test Pos; Blood Gas Sample Site Radial, right; Blood Gas Sample Type Arterial; Carboxyhemoglobin 0.7 %THgb (0.4-20.1); HCO3 ABG 26.1 mmol/L (22-26); HGB O2 Sat 89.8 % (95-100); Ionized Calcium Level - ABG 1.3 mmol/L (1.1-1.4); Methemoglobin 0.7 % (0.4-1.5); Oxygen Device NC; Oxygen Saturation ABG 91.1; PO2 ABG 54.1 mmHg (80.0-100.0); Potassium Level - ABG 4.2 mmol/L (3.5-5.0)
[2020-03-26 04:45] LABS: D Dimer 0.41 ug/mIFEU (0-0.59)
[2020-03-26 04:46] LABS: Fibrinogen 461 mg/dL (174-498)
[2020-03-26 05:03] LABS: Alanine Aminotransferase 25 U/L (0-33); Albumin Level 3.4 g/dL (3.5-5.2); Alkaline Phosphatase 61 IU/L (35-105); Anion Gap 16.5 (5-19); Aspartate Amino Transferase 16 U/L (0-32); Blood Urea Nitrogen 14 mg/dL (8-23); Calcium 9.7 mg/dL (8.5-10.5); Carbon Dioxide 23 mmol/L (22-29); Chloride 97 mmol/L (98-107); Globulin 3.2 g/dL (1.3-4.6); Glomerular Filtration Rate 84.5 mL/min (90-130); Glucose 116 mg/dL (65-115); Osmolality Calculated 275 mOsm/kg (285-295); Potassium 4.5 mmol/L (3.5-5.1); Sodium 132 mmol/L (136-145); Total Bilirubin 0.5 mg/dL (0.15-1.2); Total Protein 6.6 g/dL (6.6-8.7)
[2020-03-26 05:09] LABS: NT Pro B Type Natriuretic Pept 41 pg/mL (0-125); Procalcitonin 0.05 ng/mL (0-0.5)
[2020-03-26 05:23] LABS: Creatine Phosphokinase 34 U/L (26-192); Ferritin 872 ng/mL (15-150); Lactate Dehydrogenase 301 U/L (135-214)
--- NOTE | 2020-03-26 06:00 | XR_ITS ---
WS: [id number] Exam: XR chest 1V portable [id number] Date/Time of Exam: 03/26/2020 7:03 AM Reason For Exam: covid Diffuse bilateral pulmonary infiltrates noted. Infiltrates in the upper right lung zone have increase d since the last exam. The lungs are fully inflated. No pleural effusions or pneumothorax. Normal car diomediastinal structures. Regional bony elements are intact. Monitoring leads superimpose the chest. XR/XR chest 1V portable [id number] Impression: 1. Bilateral pulmonary infiltrates. Infiltrates in the upper right lung zones h ave increased since the prior study. No other change.
[2020-03-26 06:39] LABS: C Reactive Protein 22.8 mg/L (0.0-4.9)
[2020-03-26] MEDS: budesonide 0.5 mg/2 mL Neb INHALATION ×2 (08:24→20:33)
[2020-03-26] MEDS: levofloxacin-dextrose 5 % 750 MG/150 ML PREMIX 100 MG IV (09:21)
[2020-03-26] MEDS: ferrous gluconate 324 mg Tablet PO ×2 (09:23→17:45)
[2020-03-26] MEDS: ascorbic acid 500 mg Tablet 1000 MG PO ×2 (09:24→17:45)
[2020-03-26] MEDS: apixaban 5 mg Tablet PO ×2 (09:24→17:45)
[2020-03-26] MEDS: dexamethasone 4 mg/mL INJ 6 MG IVP (09:25)
[2020-03-26] MEDS: zinc gluconate 50 mg Tablet PO (09:25)
[2020-03-26] MEDS: LORazepam 2 mg Tablet 1 MG PO ×3 (09:43→22:07)
--- NOTE | 2020-03-26 14:23 | CT_ITS ---
WS: [id number] CTA OF THE CHEST WITH PULMONARY EMBOLISM PROTOCOL TECHNIQUE: High-resolution contrast enhanced CTA of the chest with coronal and sagittal reformatted i mages with pulmonary embolism protocol. MIP images are also reviewed. CLINICAL INFORMATION: hypoxia, covid COMPARISON: March 20, 2020 DLP: 615.[address] scans at [facility] use at least one of these dose optimization techniques: automat ed exposure control; mA and/or kV adjustment per patient size (includes targeted exams where dose is matched to clinical indication); or iterative reconstruction. FINDINGS: Proximal main pulmonary arteries are normal. Normal segmental and subsegmental pulmonary arteries. No evidence of pulmonary embolus. Normal caliber thoracic aorta. No mediastinal or hilar lymphadenopathy. Advanced chronic emphysematous changes. Groundglass infiltrates throughout both lungs worse in the mi d and lower lungs bilaterally. More confluent airspace disease in the lower lobes bilaterally progres sed since March 20, 2020. Pulmonary infiltrates have progressed. Adrenal glands are normal. Splenic granulomas. Diffuse fatty infiltration the liver. CT/CT angio chest PE protcl [id number] IMPRESSION: 1. No evidence for pulmonary embolus. 2. Advanced chronic emphysematous changes. 3. Progressed bilateral subpleural groundglass infiltrates with more confluent airspace infiltrates in the lung bases. This is progressed compared to previou s. 4. No other significant interval changes.
--- NOTE | 2020-03-26 15:08 | P.PN_ITS ---
Subjective Subjective: Interval history: No acute events overnight. Patient continues to remain on high oxygen supplementation to maintain saturation 90%. Currently she is on 40 L 80% saturating 85 to 88%. Patient states her energy levels are better today. Denies any nausea, vomiting, headache. Doing incentive spirometry and Acapella every hour. Discussed in detail regarding need of proni ng. Patient states understanding and will be doing it today. Medications: Reviewed: Yes Vitals/I&O/Wt Last Vital Signs Temp 98.2 F 03/26/20 08:00 Pulse 93 03/26/20 14:00 Resp 24 H 03/26/20 13:53 BP 111/74 03/26/20 12:00 Pulse Ox 92 03/26/20 13:53 03/26/20 03/26/20 03/26/20 06:59 14:59 22:59 Intake Total 240 / 1130 510 / 510 Output Total 1500 / 2700 Balance -1260 / -1570 510 / 510 Weight last 48 hrs Weight 94.937 kg Physical Exam Narrative: EXAM NARRATIVE: General: No acute distress, AO x3, tired appearing HEENT: PERRLA, pupils bilaterally equal and reactive Chest: Bilateral occasional crackles present all over the lung alvarado, normal vesicular breath sounds CVS: S1-S2 regular, no murmurs, no tachycardia, no gallops, no rubs Abdomen: Soft, nontender, no organomegaly, bowel sounds present Neuro: No focal deficits, no facial deformity, AO x3, power 5/5 in all limbs Data : 03/26/20 03:54 03/26/20 03:54 Micro: Microbiology 03/21/20 12:55 Blood Culture - Final Blood NO GROWTH AFTER 5 DAYS 03/25/20 20:30 Gram Stain - Final Sputum - Expectorated Sputum A&P Assessment and plan (1) Acute respiratory failure with hypoxia: Status: Acute (2) Pneumonia due to COVID-19 virus: Status: Acute (3) Sepsis: Sepsis 2/2 PNA/UTI Status: Acute (4) HTN (hypertension): Status: Acute Additional A&P Information Acute respiratory failure with hypoxia because of COVID-19 pneumonia: Post CP and remdesivir treatment treatment. Procalcitonin negative, urinary Legionella and bacterial antigen negative, MRSA negative. Sputum culture growing GPC's. Monitor inflammatory markers including CRP, LDH, proBNP, D-dimer, ferritin and trending down. Wean off oxygen keeping saturation over 88%. Still requiring heated high flow though. Finished remdesivir 5-day course on March 24. Dexamethasone 6 mg IV daily. As patient is on heated high flow continue with DuoNebs every 4 hours, Pulmicort twice daily. Aggressive pulmonary toilet with incentive spirometry and flutter valve. Prone positioning during the day today. Tessalon Perles. Vitamin C, zinc. As patient continues to require high amount of oxygen supplementation to maintain saturation even though patient does not have leukocytosis, has remained afebrile but because of sputum culture we will broaden the coverage to cefepime for now. Will monitor for next 48 hours and then stop the antibiotics. Continue Eliquis 5 mg twice daily. Echocardiogram done and results are appreciated. Consistent with diastolic dysfunction with a normal EF and no regional wall motion of normality with RVSP of 15 to 20 mmHg. We will try to keep patient negative. Net 800 cc negative in last 24 hours. Repeat Lasix 40 mg IV today. BMP stable. Strict input output charting, daily weights. As patient continues to remain hypoxic requiring high oxygen sat supplementation will repeat CTA to rule out PE, new consolidation. Hypertension: Goal blood pressure less than 140/90 mmHg. For now continue with home dose of lisinopril. We will add metoprolol 25 mg twice daily for occasional episodes of tachycardia with heart rate going up to 130s. On telemetry looks sinus rhythm. Diet: Cardiac. DVT PPX: On Eliquis 5 mg twice daily Code Status : Full code Disposition :Home versus LTAC. As patient is still requiring high oxygen supplementation to maintain saturation over 88 to 90% discussed in detail with both patient and her regarding possible discharge to LTAC for further pulmonary rehabilitation as she will need prolonged pulmonary rehab before she c an be discharged back home. has agreed for the same though patient states she would want to think about it some more. Did discuss with the patient for now that she does not qualify for LTAC as well as she is requiring more than 80% of FiO2 to maintain her saturations and she needs to be requiring less than 60%. We will continue to monitor. Attestations Medical Necessity Statement*: Requires further hospitalization for management of acute hypoxic respiratory failure because of COVID-19 pneumonia Time Spent in Patient Care: Greater than 35 minutes (>than 50% of time spent in counselling and/or direct pt care on unit) . Coding Level of Care Code Acute Tension Worker for Chg Fwd Diagnoses Acute respiratory failure with hypoxia J96.01 Pneumonia due to COVID-19 virus U07.1; J12.89 Sepsis A41.9 HTN (hypertension) I10
[2020-03-26] MEDS: FUROsemide 10 mg/mL SDV 4mL 40 MG IVP (15:27)
[2020-03-26] MEDS: iohexol 350 mg/mL 100 mL Btl IV (16:22)
[2020-03-26] MEDS: cefepime 1,000 MG in sodium chloride 0.9% (plus) 50 ML 100 MG IV (17:09)
[2020-03-26] MEDS: sodium chloride 1 gm Tablet PO (17:45)
[2020-03-26] MEDS: ondansetron 2 mg/ML SDV 2 mL 4 MG IVP ×2 (18:03→21:12)
[2020-03-26] MEDS: metoprolol tartrate 25 mg Tablet PO (21:12)
--- NOTE | 2020-03-26 21:15 | PC.NURSE ---
Patient nauseated. Zofran given.
[2020-03-27] VITALS (32 sets, daily range): BP systolic 96–119; BP diastolic 70–84; PULSE 80–107; RESP 13–31; TEMP 36.6–37.2; O2SAT 83–93
[2020-03-27] MEDS: ipratropium-albuterol 3 mL Neb INHALATION ×6 (00:15→20:58)
[2020-03-27] MEDS: cefepime 1,000 MG in sodium chloride 0.9% (plus) 50 ML 100 MG IV (04:42)
[2020-03-27 06:12] LABS: Basophils % 0.1 %; Eosinophils # 0.1 10^3/uL (0.0-0.8); Eosinophils % 0.7 %; Hemoglobin 13.1 g/dL (11.5-15.3); Lymphocytes # 0.8 10^3/uL (0.8-4.8); Lymphocytes % 8.6 %; Mean Corpuscular HGB Conc 33.6 g/dL (30.0-36.0); Mean Corpuscular Hemoglobin 29.2 pg (28.0-34.0); Mean Corpuscular Volume 87.1 fL (81-99); Mean Platelet Volume 9.4 fL (7.4-10.4); Monocytes # 0.4 10^3/uL (0.2-0.9); Monocytes % 4.5 %; Neutrophils # 8.06 10^3/uL (1.8-7.7); Nucleated Red Blood Cells % 0 %; Platelet Count 435 10^3/cmm (130-400); Red Blood Count 4.48 10^6/uL (4.1-5.3); Red Cell Distribution Width 13.2 % (12.1-15.1); White Blood Count 9.5 10^3/uL (4.0-10.0)
[2020-03-27 06:44] LABS: Alanine Aminotransferase 21 U/L (0-33); Albumin Level 3.4 g/dL (3.5-5.2); Alkaline Phosphatase 61 IU/L (35-105); Anion Gap 16.2 (5-19); Aspartate Amino Transferase 16 U/L (0-32); Blood Urea Nitrogen 16 mg/dL (8-23); Calcium 9.2 mg/dL (8.5-10.5); Carbon Dioxide 25 mmol/L (22-29); Chloride 93 mmol/L (98-107); Globulin 3.4 g/dL (1.3-4.6); Glomerular Filtration Rate 72.4 mL/min (90-130); Glucose 107 mg/dL (65-115); Osmolality Calculated 272 mOsm/kg (285-295); Potassium 4.2 mmol/L (3.5-5.1); Sodium 130 mmol/L (136-145); Total Bilirubin 0.7 mg/dL (0.15-1.2); Total Protein 6.8 g/dL (6.6-8.7)
[2020-03-27 06:47] LABS: Fibrinogen 532 mg/dL (174-498)
[2020-03-27 06:49] LABS: D Dimer 0.54 ug/mIFEU (0-0.59)
[2020-03-27 06:56] LABS: C Reactive Protein 59.1 mg/L (0.0-4.9); Creatine Phosphokinase 28 U/L (26-192); Ferritin 862 ng/mL (15-150); Lactate Dehydrogenase 318 U/L (135-214); NT Pro B Type Natriuretic Pept 63 pg/mL (0-125)
[2020-03-27] MEDS: budesonide 0.5 mg/2 mL Neb INHALATION ×2 (07:49→20:59)
[2020-03-27] MEDS: apixaban 5 mg Tablet PO ×2 (08:52→17:43)
[2020-03-27] MEDS: dexamethasone 4 mg/mL INJ 6 MG IVP (08:53)
[2020-03-27] MEDS: zinc gluconate 50 mg Tablet PO (08:53)
[2020-03-27] MEDS: sodium chloride 1 gm Tablet PO ×2 (08:53→17:43)
[2020-03-27] MEDS: ascorbic acid 500 mg Tablet 1000 MG PO ×2 (08:53→17:43)
[2020-03-27] MEDS: ferrous gluconate 324 mg Tablet PO ×2 (08:53→17:43)
--- NOTE | 2020-03-27 10:34 | PM.PN ---
Subjective Subjective: Interval history: No acute events overnight. Today morning on examination patient sitting comfortably in bed still on heated high flow. States energy levels are better. Denies any nausea, vomiting. States appetite is good. She is working with incentive spirometry and Acapella every hourly. She did do proning for almost an hour yesterday. She continues to be on heated high flow with FiO2 of 90% maintaining saturation around 92 to 93%. Medications: Reviewed: Yes Vitals/I&O/Wt Last Vital Signs Temp 98.6 F 03/27/20 04:00 Pulse 90 03/27/20 07:45 Resp 24 H 03/27/20 07:45 BP 119/84 03/27/20 04:00 Pulse Ox 90 03/27/20 07:45 03/26/20 03/27/20 03/27/20 22:59 06:59 14:59 Intake Total 410 / 920 50 / 970 Output Total 750 / 750 250 / 1000 Balance -340 / 170 -200 / -30 Weight last 48 hrs Weight 95.254 kg Physical Exam Narrative: EXAM NARRATIVE: General: No acute distress, AO x3, tired appearing HEENT: PERRLA, pupils bilaterally equal and reactive Chest: Bilateral occasional crackles present all over the lung alvarado, normal vesicular breath sounds CVS: S1-S2 regular, no murmurs, no tachycardia, no gallops, no rubs Abdomen: Soft, nontender, no organomegaly, bowel sounds present Neuro: No focal deficits, no facial deformity, AO x3, power 5/5 in all limbs Data : 03/27/20 06:04 03/27/20 06:04 Micro: Microbiology 03/25/20 20:30 Gram Stain - Final Sputum - Expectorated Sputum Sputum Culture - Preliminary 03/21/20 12:50 Blood Culture - Final Blood NO GROWTH AFTER 5 DAYS 03/21/20 12:55 Blood Culture - Final Blood NO GROWTH AFTER 5 DAYS A&P Assessment and plan (1) Acute respiratory failure with hypoxia: Status: Acute (2) Pneumonia due to COVID-19 virus: Status: Acute (3) Sepsis: Sepsis 2/2 PNA/UTI Status: Acute (4) HTN (hypertension): Status: Acute Additional A&P Information Acute respiratory failure with hypoxia because of COVID-19 pneumonia: Post CP and remdesivir treatment treatment. Procalcitonin negative, urinary Legionella and bacterial antigen negative, MRSA negative. Sputum culture growing GPC's. CTA done on March 26 results appreciated. Consistent with evolving pneumonia from COVID-19. Monitor inflammatory markers including CRP, LDH, proBNP, D-dimer, ferritin and trending down. Wean off oxygen keeping saturation over 88%. Still requiring heated high flow though. Finished remdesivir 5-day course on March 24. Dexamethasone 6 mg IV daily. As patient is on heated high flow continue with DuoNebs every 4 hours, Pulmicort twice daily. Aggressive pulmonary toilet with incentive spirometry and flutter valve. Prone positioning during the day today. Tessalon Perles. Vitamin C, zinc. As patient continues to require high amount of oxygen supplementation to maintain saturation even though patient does not have leukocytosis, has remained afebrile. For now stop all antibiotics and monitor for next 48 hours. If patient spikes fever or has leukocytosis will reintroduce antibiotics. Continue to follow culture results. Continue Eliquis 5 mg twice daily. Echocardiogram done and results are appreciated. Consistent with diastolic dysfunction with a normal EF and no regional wall motion of normality with RVSP of 15 to 20 mmHg. We will try to keep patient negative. Patient net 2 L positive since admission. Strict input output charting, daily weights. Hypertension: Goal blood pressure less than 140/90 mmHg. For now continue with home dose of lisinopril. We will add metoprolol 25 mg twice daily for occasional episodes of tachycardia with heart rate going up to 130s. On telemetry looks sinus rhythm. Diet: Cardiac. DVT PPX: On Eliquis 5 mg twice daily Code Status : Full code Disposition :Home versus LTAC. As patient is still requiring high oxygen supplementation to maintain saturation over 88 to 90% discussed in detail with both patient and her regarding possible discharge to LTAC for further pulmonary rehabilitation as she will need prolonged pulmonary rehab before she can be discharged back home. has agreed for the same though patient states she would want to think about it some more. Did discuss with the patient for now that she does not qualify for LTAC as well as she is requiring more than 80% of FiO2 to maintain her saturations and she needs to be requiring less than 60%. We will continue to monitor. Attestations Medical Necessity Statement*: Requires further hospitalization for management of acute hypoxic respiratory failure because of COVID-19 pneumonia requiring high oxygen supplementation to maintain saturation and 90% on rest. Time Spent in Patient Care: Greater than 35 minutes (>than 50% of time spent in counselling and/or direct pt care on unit). Coding Level of Care Code Acute Building Performance Specialist for g Fwd Diagnoses Acute respiratory failure with hypoxia J96.01 Pneumonia due to COVID-19 virus U07.1; J12.89 Sepsis A41.9 HTN (hypertension) I10
[2020-03-27] MEDS: LORazepam 2 mg Tablet 1 MG PO (15:58)
--- NOTE | 2020-03-27 17:33 | PC.RESP ---
Dr Mercedes called for update on pt, pt is on 40 lpm 100% FNC, sats 90-92. No new orders at this time, will continue to monitor
--- NOTE | 2020-03-27 19:00 | PC.NURSE ---
Report received, care assumed. Monitor alarms, plan of care et previous orders reviewed. Patient currently on heated high flow nasal cannula 40 L, 100% FiO2. Please see physcial assessment et vital sign flowsheets for details.
[2020-03-27] MEDS: metoprolol tartrate 25 mg Tablet PO (21:33)
[2020-03-28] VITALS (39 sets, daily range): BP systolic 91–120; BP diastolic 67–76; PULSE 74–105; RESP 15–32; TEMP 36.4–37; O2SAT 85–95
[2020-03-28] MEDS: morphine 4 mg/mL SDV 1 mL 1 MG IVP ×2 (01:21→21:41)
[2020-03-28] MEDS: LORazepam 1 mg Tablet PO ×4 (01:21→17:42)
--- NOTE | 2020-03-28 02:36 | PC.NURSE ---
Patient given ativan et morphine at patient's request. After receiving medication with RN at bedside, patient turned into mostly prone positioning. All of patient's lines et monitoring cables were adjusted for comfort while prone. Will continue to monitor.
[2020-03-28] MEDS: ipratropium-albuterol 3 mL Neb INHALATION ×6 (03:25→19:50)
--- NOTE | 2020-03-28 06:00 | XRR_ITS ---
PROCEDURE INFORMATION: Exam: XR Chest, 1 View Exam date and time: 03/27/2020 11:59 PM Age: 64 years old Clinical indication: Shortness of breath; Additional info: Covid TECHNIQUE: Imaging protocol: XR of the chest Views: 1 view. COMPARISON: CR XR chest 1V portable [id number] 03/26/2020 7:24 AM FINDINGS: Lungs: Bilateral interstitial pulmonary infiltrates are present. There are increasing in prominence when compared to the previous chest x-ray from 03/26/2020. Pleural spaces: Unremarkable. No pleural effusion. No pneumothorax. Heart/Mediastinum: Unremarkable. No cardiomegaly. Bones/joints: Unremarkable. XR/XR chest 1V portable [id number] IMPRESSION: Worsening bilateral interstitial pulmonary infiltrates.
--- NOTE | 2020-03-28 07:00 | PC.NURSE ---
Report given to next shift.
[2020-03-28 07:04] LABS: Alanine Aminotransferase 21 U/L (0-33); Albumin Level 3.4 g/dL (3.5-5.2); Alkaline Phosphatase 59 IU/L (35-105); Anion Gap 18.3 (5-19); Aspartate Amino Transferase 16 U/L (0-32); Blood Urea Nitrogen 18 mg/dL (8-23); Calcium 9.9 mg/dL (8.5-10.5); Carbon Dioxide 23 mmol/L (22-29); Chloride 98 mmol/L (98-107); Globulin 3.2 g/dL (1.3-4.6); Glomerular Filtration Rate 72.4 mL/min (90-130); Glucose 109 mg/dL (65-115); Osmolality Calculated 282 mOsm/kg (285-295); Potassium 4.3 mmol/L (3.5-5.1); Sodium 135 mmol/L (136-145); Total Bilirubin 0.5 mg/dL (0.15-1.2); Total Protein 6.6 g/dL (6.6-8.7)
[2020-03-28] MEDS: budesonide 0.5 mg/2 mL Neb INHALATION ×2 (07:46→19:50)
[2020-03-28 07:48] LABS: C Reactive Protein 63.9 mg/L (0.0-4.9); Creatine Phosphokinase 26 U/L (26-192); Lactate Dehydrogenase 274 U/L (135-214); NT Pro B Type Natriuretic Pept 59 pg/mL (0-125)
[2020-03-28 08:13] LABS: Ferritin 851 ng/mL (15-150)
[2020-03-28] MEDS: zinc gluconate 50 mg Tablet PO (09:26)
[2020-03-28] MEDS: ferrous gluconate 324 mg Tablet PO ×2 (09:26→17:42)
[2020-03-28] MEDS: apixaban 5 mg Tablet PO ×2 (09:26→17:42)
[2020-03-28] MEDS: ascorbic acid 500 mg Tablet 1000 MG PO ×2 (09:26→17:42)
[2020-03-28 10:23] LABS: Basophils % 0.2 %; Eosinophils # 0.1 10^3/uL (0.0-0.8); Eosinophils % 0.7 %; Hematocrit 39.2 % (37.0-47.0); Hemoglobin 12.9 g/dL (11.5-15.3); Lymphocytes # 0.8 10^3/uL (0.8-4.8); Lymphocytes % 6.1 %; Mean Corpuscular HGB Conc 32.9 g/dL (30.0-36.0); Mean Corpuscular Hemoglobin 29.5 pg (28.0-34.0); Mean Corpuscular Volume 89.5 fL (81-99); Mean Platelet Volume 9.9 fL (7.4-10.4); Monocytes # 0.4 10^3/uL (0.2-0.9); Monocytes % 2.7 %; Neutrophils # 11.58 10^3/uL (1.8-7.7); Neutrophils % 88.9 %; Nucleated Red Blood Cells % 0 %; Platelet Count 497 10^3/cmm (130-400); Red Blood Count 4.38 10^6/uL (4.1-5.3); Red Cell Distribution Width 13.2 % (12.1-15.1)
[2020-03-28 11:12] LABS: Fibrinogen 518 mg/dL (174-498)
[2020-03-28 11:15] LABS: D Dimer 0.64 ug/mIFEU (0-0.59)
[2020-03-28] MEDS: dexamethasone 4 mg/mL INJ 6 MG IVP (11:16)
--- NOTE | 2020-03-28 11:58 | P.PN_ITS ---
Subjective Subjective: Interval history: No acute events overnight. Denies any nausea vomiting, headache, states he is feeling weak, states appetite is okay. Today on examination patient is fairly anxious. States she does not want any further blood work. She also states she is ready to . We discussed in detail that we will not do any blood work tomorrow and going forward we can do it every alternate day but we do need to do blood work to monitor inflammatory markers. I also stated in detail that she is still requiring a lot of oxygen but has been stabilized so she should not give up and continue to be in good spirits and concentrate on doing incentive spirometry, Acapella and if she has any further concerns she should let the nursing staff or me know immediately so that we can try to find a good solution to it. Patient states she has not been telling me any concerns because she does not like to bother people. Medications: Reviewed: Yes Vitals/I&O/Wt Last Vital Signs Temp 97.6 F 03/28/20 11:29 Pulse 91 03/28/20 11:47 Resp 24 H 03/28/20 11:47 BP 109/72 03/28/20 11:29 Pulse Ox 88 L 03/28/20 11:47 03/27/20 03/28/20 03/28/20 22:59 06:59 14:59 Intake Total 1000 / 1000 700 / 1700 120 / 120 Output Total 2049 / 2049 1100 / 3150 375 / 375 Balance -1050 / -1050 -400 / -1450 -255 / -255 Weight last 48 hrs Weight 42.366 kg Weight 62.868 kg Weight 95.254 kg Physical Exam Narrative: EXAM NARRATIVE: General: No acute distress, AO x3, tired appearing HEENT: PERRLA, pupils bilaterally equal and reactive Chest: Bilateral occasional crackles present all over the lung alvarado, normal vesicular breath sounds CVS: S1-S2 regular, no murmurs, no tachycardia, no gallops, no rubs Abdomen: Soft, nontender, no organomegaly, bowel sounds present Neuro: No focal deficits, no facial deformity, AO x3, power 5/5 in all limbs Data : 03/28/20 09:45 03/28/20 06:35 Micro: Microbiology 03/25/20 20:30 Gram Stain - Final Sputum - Expectorated Sputum Sputum Culture - Final A&P Assessment and plan (1) Acute respiratory failure with hypoxia: Status: Acute (2) Pneumonia due to COVID-19 virus: Status: Acute (3) Sepsis: Sepsis 2/2 PNA/UTI Status: Acute (4) HTN (hypertension): Status: Acute Additional A&P Information Acute respiratory failure with hypoxia because of COVID-19 pneumonia: Post CP and remdesivir treatment treatment. Procalcitonin negative, urinary Legionella and bacterial antigen negative, MRSA negative. Sputum culture growing GPC's. CTA done on March 26 results appreciated. Consistent with evolving pneumonia from COVID-19. Antibiotics stopped on March 27. Patient continues to require high amount of oxygen supplementation but has remained afebrile without any leukocytosis. For now we will continue to hold off on any further antibiotics. Monitor inflammatory markers including CRP, LDH, proBNP, D-dimer, ferritin and trending down. Wean off oxygen keeping saturation over 88%. Still requiring heated high flow though. Finished remdesivir 5-day course on March 24. Dexamethasone 6 mg IV daily. As patient is on heated high flow continue with DuoNebs every 4 hours, Pulmicort twice daily. Aggressive pulmonary toilet with incentive spirometry and flutter valve. Prone positioning during the day today. Tessalon Perles. Vitamin C, zinc. Continue Eliquis 5 mg twice daily. Echocardiogram done and results are appreciated. Consistent with diastolic dysfunction with a normal EF and no regional wall motion of normality with RVSP of 15 to 20 mmHg. We will try to keep patient negative. Today patient is net 150 cc negative. Strict input output charting, daily weights. Continue to monitor urine output. Continue with Ativan 0.5 twice daily for anxiety. Hypertension: Goal blood pressure less than 140/90 mmHg. For now continue with home dose of lisinopril. We will add metoprolol 25 mg twice daily for occasional episodes of tachycardia with heart rate going up to 130s. On telemetry looks sinus rhythm. Diet: Cardiac. DVT PPX: On Eliquis 5 mg twice daily Code Status : Full code Disposition :Home versus LTAC. As patient is still requiring high oxygen supplementation to maintain saturation over 88 to 90% discussed in detail with both patient and her regarding possible discharge to LTAC for further pulmonary rehabilitation as she will need prolonged pulmonary rehab before she can be discharged back home. has agreed for the same though patient states she would want to think about it some more. Did discuss with the patient for now that she does not qualify for LTAC as well as she is requiring more than 80% of FiO2 to maintain her saturations and she needs to be requiring less than 60%. We will continue to monitor. Attestations 2 Medical Necessity Statement*: Patient requires further hospitalization for management of acute hypoxic respiratory failure because of COVID-19 pneumonia Time Spent in Patient Care: Greater than 35 minutes (>than 50% of time spent in counselling and/or direct pt care on unit) . Coding Level of Care Code Acute Filteration Operator for [facility] Fwd Diagnoses Acute respiratory failure with hypoxia J96.01 Pneumonia due to COVID-19 virus U07.1; J12.89 Sepsis A41.9 HTN (hypertension) I10
--- NOTE | 2020-03-28 18:20 | PC.NURSE ---
[id number] Mercedes to report that patient's IV has gone bad, patient is resistant to needle sticks, clarified if dexamethasone can be changed to PO. Patient refusing to wear blood pressure cuff, will spot check. Patient refusing lab draws. Discussed fall risk with lines and O2 requirements. Patient states she undrstands the risk but she will still get up to the [facility] on her own.
[2020-03-28] MEDS: LORazepam 0.5 mg Tablet PO (21:41)
[2020-03-28] MEDS: metoprolol tartrate 25 mg Tablet PO (21:45)
[2020-03-29] VITALS (28 sets, daily range): BP systolic 112–129; BP diastolic 63–85; PULSE 70–105; RESP 16–29; TEMP 36.6–36.7; O2SAT 86–95
[2020-03-29] MEDS: ipratropium-albuterol 3 mL Neb INHALATION ×6 (00:10→20:07)
[2020-03-29] MEDS: LORazepam 1 mg Tablet PO ×2 (00:34→20:47)
--- NOTE | 2020-03-29 07:48 | PC.NURSE ---
Report given to day shift.
[2020-03-29] MEDS: budesonide 0.5 mg/2 mL Neb INHALATION ×2 (08:08→20:07)
[2020-03-29] MEDS: zinc gluconate 50 mg Tablet PO (08:21)
[2020-03-29] MEDS: sodium chloride 1 gm Tablet PO ×2 (08:21→17:05)
[2020-03-29] MEDS: LORazepam 0.5 mg Tablet PO ×2 (08:21→17:05)
[2020-03-29] MEDS: ascorbic acid 500 mg Tablet 1000 MG PO ×2 (08:21→17:05)
[2020-03-29] MEDS: ferrous gluconate 324 mg Tablet PO ×2 (08:22→17:05)
[2020-03-29] MEDS: dexamethasone 4 mg/mL INJ 6 MG IVP (08:22)
[2020-03-29] MEDS: apixaban 5 mg Tablet PO ×2 (08:22→17:05)
--- NOTE | 2020-03-29 08:22 | PC.NURSE ---
patient refused to take benzonatate, lisinoporil, metoprolol tartrate, and pantoprazole. Dr. Mercedes notified.
--- NOTE | 2020-03-29 13:15 | PC.NURSE ---
patient resting in bed at this time. denies any needs. call light within reach.
--- NOTE | 2020-03-29 16:34 | P.PN_ITS ---
Subjective Subjective: Interval history: No acute events overnight. On examination patient states she is feeling a lot better and jovial today. She is having her breakfast enjoying her meal. She states she is leaving the food today. Appetite is good. States energy levels are better. Patient continues to refuse multiple medications including metoprolol, PPI. Discussed with both in detail regarding need of these medications. She states she will think about them. Currently she is on 40 L 75% FiO2 with a saturation of 92%. Patient has remained hemodynamically stable. Medications: Reviewed: Yes Vitals/I&O/Wt Last Vital Signs Temp 97.8 F 03/29/20 13:41 Pulse 85 03/29/20 14:13 Resp 18 03/29/20 14:13 BP 113/85 03/29/20 13:09 Pulse Ox 93 03/29/20 14:13 03/29/20 03/29/20 03/29/20 06:59 14:59 22:59 Intake Total 720 / 720 Output Total 1600 / 5600 2500 / 2500 Balance -1600 / -4560 -1780 / -1780 Weight last 48 hrs Weight 92.17 kg Weight 42.366 kg Weight 62.868 kg Physical Exam Narrative: EXAM NARRATIVE: General: No acute distress, AO x3, tired appearing HEENT: PERRLA, pupils bilaterally equal and reactive Chest: Bilateral occasional crackles present all over the lung alvarado, normal vesicular breath sounds CVS: S1-S2 regular, no murmurs, no tachycardia, no gallops, no rubs Abdomen: Soft, nontender, no organomegaly, bowel sounds present Neuro: No focal deficits, no facial deformity, AO x3, power 5/5 in all limbs Data : 03/28/20 09:45 03/28/20 06:35 A&P Assessment and plan (1) Acute respiratory failure with hypoxia: Status: Acute (2) Pneumonia due to COVID-19 virus: Status: Acute (3) Sepsis: Sepsis 2/2 PNA/UTI Status: Acute (4) HTN (hypertension): Status: Acute Additional A&P Information Patient requesting labs to be done every 48 hours so we will avoid today. Acute respiratory failure with hypoxia because of COVID-19 pneumonia: Post CP and remdesivir treatment treatment. Procalcitonin negative, urinary Legionella and bacterial antigen negative, MRSA negative. Sputum culture growing GPC's. CTA done on March 26 results appreciated. Consistent with evolving pneumonia from COVID-19. Antibiotics stopped on March 27. Patient continues to require high amount of oxygen supplementation but has remained afebrile without any leukocytosis so will continue to hold off on any further antibiotics. Monitor inflammatory markers including CRP, LDH, proBNP, D-dimer, ferritin and trending down. Wean off oxygen keeping saturation over 88%. Still requiring heated high flow though. Finished remdesivir 5-day course on March 24. Dexamethasone 6 mg IV daily. As patient is on heated high flow continue with DuoNebs every 4 hours, Pulmicort twice daily. Aggressive pulmonary toilet with incentive spirometry and flutter valve. Prone positioning during the day today. Tessalon Perles. Vitamin C, zinc. Continue Eliquis 5 mg twice daily. Echocardiogram done and results are appreciated. Consistent with diastolic dysfunction with a normal EF and no regional wall motion of normality with RVSP of 15 to 20 mmHg. We will try to keep patient negative. Today patient is net 150 cc negative. Strict input output charting, daily weights. Continue to monitor urine output. Continue with Ativan 0.5 twice daily for anxiety. We will consider consulting pulmonology for further assistance. Hypertension: Goal blood pressure less than 140/90 mmHg. For now continue with home dose of lisinopril. Patient is metoprolol 25 twice daily but continues to refuse. Diet: Cardiac. DVT PPX: On Eliquis 5 mg twice daily Code Status : Full code Continue to refuse her metoprolol and PPIs. Disposition :Home versus LTAC. As patient is still requiring high oxygen supplementation to maintain saturation over 88 to 90% discussed in detail with both patient and her regarding possible discharge to LTAC for further pulmonary rehabilitation as she will need prolonged pulmonary rehab before she can be discharged back home. has agreed for the same though patient states she would want to think about it some more. Did discuss with the patient for now that she does not qualify for LTAC as well as she is requiring more than 80% of FiO2 to maintain her saturations and she needs to be requiring less than 60%. We will continue to monitor. Attestations Medical Necessity Statement*: Requires further hospitalization for management of persistent acute hypoxic respiratory failure because of COVID-19 pneumonia. Time Spent in Patient Care: Greater than 35 minutes (>than 50% of time spent in counselling and/or direct pt care on unit) . Coding Level of Care Code Acute Quality Improvement Coordinator for [facility] Fwd Diagnoses Acute respiratory failure with hypoxia J96.01 Pneumonia due to COVID-19 virus U07.1; J12.89 Sepsis A41.9 HTN (hypertension) I10
[2020-03-29] MEDS: metoprolol tartrate 25 mg Tablet PO (20:47)
[2020-03-30] VITALS (22 sets, daily range): BP systolic 92–146; BP diastolic 52–82; PULSE 69–101; RESP 16–27; TEMP 36.7–37; O2SAT 88–96; BMI 27.3
[2020-03-30] MEDS: ipratropium-albuterol 3 mL Neb INHALATION ×7 (00:01→23:17)
--- NOTE | 2020-03-30 00:03 | PC.NURSE ---
PT RESTING IN BED. PT DENIES PAIN. PT STATES THAT SHE WAS ANXIOUS. PRN ATIVAN WAS GIVEN.WILL CONTINUE TO MONITOR.
[2020-03-30 06:21] LABS: Basophils % 0.2 %; Eosinophils # 0.1 10^3/uL (0.0-0.8); Eosinophils % 0.5 %; Hematocrit 37.9 % (37.0-47.0); Hemoglobin 12.5 g/dL (11.5-15.3); Lymphocytes # 1.1 10^3/uL (0.8-4.8); Lymphocytes % 8.5 %; Mean Corpuscular Hemoglobin 29.5 pg (28.0-34.0); Mean Corpuscular Volume 89.4 fL (81-99); Mean Platelet Volume 9.8 fL (7.4-10.4); Monocytes # 0.7 10^3/uL (0.2-0.9); Monocytes % 5.5 %; Neutrophils # 10.58 10^3/uL (1.8-7.7); Neutrophils % 83.6 %; Nucleated Red Blood Cells % 0 %; Platelet Count 520 10^3/cmm (130-400); Red Blood Count 4.24 10^6/uL (4.1-5.3); Red Cell Distribution Width 13.4 % (12.1-15.1); White Blood Count 12.6 10^3/uL (4.0-10.0)
--- NOTE | 2020-03-30 06:41 | PC.NURSE ---
PT RESTING IN BED. PT DENIES PAIN AT THIS TIME. WILL CONTINUE TO MONITOR.
[2020-03-30 07:04] LABS: Alanine Aminotransferase 22 U/L (0-33); Albumin Level 3.2 g/dL (3.5-5.2); Alkaline Phosphatase 59 IU/L (35-105); Aspartate Amino Transferase 14 U/L (0-32); Blood Urea Nitrogen 16 mg/dL (8-23); C Reactive Protein 16.5 mg/L (0.0-4.9); Carbon Dioxide 24 mmol/L (22-29); Chloride 105 mmol/L (98-107); Ferritin 642 ng/mL (15-150); Glomerular Filtration Rate 84.5 mL/min (90-130); Glucose 91 mg/dL (65-115); NT Pro B Type Natriuretic Pept 125 pg/mL (0-125); Osmolality Calculated 287 mOsm/kg (285-295); Sodium 138 mmol/L (136-145); Total Bilirubin 0.3 mg/dL (0.15-1.2); Total Protein 6.2 g/dL (6.6-8.7)
[2020-03-30] MEDS: budesonide 0.5 mg/2 mL Neb INHALATION ×2 (08:12→20:10)
[2020-03-30] MEDS: metoprolol tartrate 25 mg Tablet PO ×2 (08:47→21:47)
[2020-03-30] MEDS: zinc gluconate 50 mg Tablet PO (08:47)
[2020-03-30] MEDS: ascorbic acid 500 mg Tablet 1000 MG PO ×2 (08:47→17:32)
[2020-03-30] MEDS: sodium chloride 1 gm Tablet PO ×2 (08:47→17:32)
[2020-03-30] MEDS: apixaban 5 mg Tablet PO ×2 (08:47→17:32)
[2020-03-30] MEDS: LORazepam 0.5 mg Tablet PO ×2 (08:47→17:32)
[2020-03-30] MEDS: dexamethasone 4 mg/mL INJ 6 MG IVP (08:49)
[2020-03-30] MEDS: LORazepam 1 mg Tablet PO ×2 (14:38→23:12)
--- NOTE | 2020-03-30 15:11 | PC.NURSE ---
pt refused PO AM protonix
--- NOTE | 2020-03-30 15:11 | PC.NURSE ---
pt bed changed
[2020-03-30] MEDS: ferrous gluconate 324 mg Tablet PO (17:32)
--- NOTE | 2020-03-30 20:24 | PM.PN ---
Subjective Subjective: Interval history: She is gradually improving. She denies chest pain or pressure. Has some intermittent cough, not productive of sputum. No headache, no nausea vomiting or diarrhea. She requests if possible to have her sodium intake liberalized in her diet. Vitals/I&O/Wt Last Vital Signs Temp 98.6 F 03/30/20 12:00 Pulse 88 03/30/20 20:10 Resp 20 H 03/30/20 20:10 BP 125/80 03/30/20 16:00 Pulse Ox 92 03/30/20 20:10 03/30/20 03/30/20 03/30/20 06:59 14:59 22:59 Intake Total 720 / 1680 960 / 960 480 / 1440 Output Total 2300 / 5800 500 / 500 Balance -1580 / -4120 960 / 960 -20 / 940 Weight last 48 hrs Weight 91.58 kg Weight 92.17 kg Physical Exam Const: COMMON NORMALS: no acute distress, patient oriented x3 and alert GENERAL APPEARANCE: cooperative and comfortable ORIENTATION/CONSCIOUSNESS: Yes awake OTHER: High flow cannula in place. She speaks in full sentences. HENMT: COMMON NORMALS: oropharynx normal Neck/C-Spine: COMMON NORMALS: no JVD Resp: COMMON NORMALS: normal respiratory effort and clear to auscultation bilaterally AUSCULTATION: clear to auscultation bilaterally Cardio: COMMON NORMALS: no JVD, regular rhythm, S1 normal heart sound present, S2 normal heart sound present and No murmurs present (Cardio) RHYTHM: regular rhythm HEART SOUNDS: S1 normal heart sound present and S2 normal heart sound present GI: COMMON NORMALS: Normal to inspection, nondistended, normoactive bowel sounds present, Soft to palpation and non-tender PALPATION: Yes Soft to palpation Extremity: COMMON NORMALS: no joint enlargement and no pedal edema Neuro: COMMON NORMALS: patient oriented x3 and moves all extremities SENSORIUM/ORIENTATION: Yes alert Skin: COMMON NORMALS: no rashes or lesions noted GENERAL SKIN EXAM: no rashes or lesions noted Data : 03/30/20 04:45 03/30/20 04:45 A&P Assessment and plan (1) Acute respiratory failure with hypoxia: Slow improvement in terms of hypoxia. Did come down to 65% FiO2 today. She is slowly overall showing improvement. Continue to gradually wean down oxygen support as tolerating. Continues on Decadron. Will transition to oral dose. Prone positioning as tolerating. Continue flutter valve and incentive spirometry. Continue DuoNeb. Budesonide. Eliquis. She is agreeable for further weaning at LTAC. Status: Acute (2) Pneumonia due to COVID-19 virus: As above. CRP decreasing. Status: Acute (3) Sepsis: Sepsis 2/2 PNA/UTI Resolving. Status: Acute (4) HTN (hypertension): At goal. Status: Acute Additional A&P Information Continue with Ativan 0.5 twice daily for anxiety. Attestations Medical Necessity Statement*: Continue mission for assessment management of slow to improve respiratory failure, gradually improving severe COVID-19 pneumonia. Coding Level of Care Code Acute Ball Fringe Machine Operator for [facility] Diagnoses Acute respiratory failure with hypoxia J96.01 Pneumonia due to COVID-19 virus U07.1; J12.89 Sepsis A41.9 HTN (hypertension) I10
[2020-03-30] MEDS: morphine 4 mg/mL SDV 1 mL 1 MG IVP (21:55)
[2020-03-31] VITALS (26 sets, daily range): BP systolic 101–134; BP diastolic 67–93; PULSE 70–101; RESP 16–30; TEMP 36.9–37.9; O2SAT 88–96; BMI 28.5
[2020-03-31] MEDS: ipratropium-albuterol 3 mL Neb INHALATION ×6 (03:17→23:49)
[2020-03-31] MEDS: ascorbic acid 500 mg Tablet 1000 MG PO ×2 (08:27→17:14)
[2020-03-31] MEDS: LORazepam 0.5 mg Tablet PO ×2 (08:27→17:14)
[2020-03-31] MEDS: zinc gluconate 50 mg Tablet PO (08:28)
[2020-03-31] MEDS: sodium chloride 1 gm Tablet PO ×2 (08:28→17:14)
[2020-03-31] MEDS: dexamethasone 4 mg Tablet PO (08:28)
[2020-03-31] MEDS: ferrous gluconate 324 mg Tablet PO ×2 (08:28→17:14)
[2020-03-31] MEDS: apixaban 5 mg Tablet PO ×2 (08:29→17:14)
[2020-03-31] MEDS: metoprolol tartrate 25 mg Tablet PO ×2 (08:32→21:42)
[2020-03-31] MEDS: budesonide 0.5 mg/2 mL Neb INHALATION ×2 (08:44→20:16)
--- NOTE | 2020-03-31 20:30 | PM.PN ---
Subjective Subjective: Interval history: Today she is absolutely declining to continue care over at LTAC for continued weaning off of so for persistently increased oxygen requirement. Yesterday she was agreeable, and interested, however, today appears changed her mind stating I am not going to any facility , and rather upset. Asking regarding what may have changed her mind, states she had discussed this and thought about it, and states she just wants to go home. Appears she perhaps was under impression that she was ready for discharge. Discussed with her still continued requirement for 35 L of oxygen at the time of my visit. Discussed that return home is the desired goal, however, will also need to be done at a safe time when her oxygen is at a level that may be supported by home oxygen devices. She verbalized understanding. She is wanting to stay here to continue care until she is ready to discharge home. Vitals/I&O/Wt Last Vital Signs Temp 99.7 F H 03/31/20 19:46 Pulse 85 03/31/20 20:23 Resp 20 H 03/31/20 20:16 BP 118/73 03/31/20 16:00 Pulse Ox 88 L 03/31/20 20:16 03/31/20 03/31/20 03/31/20 06:59 14:59 22:59 Intake Total 960 / 960 720 / 1680 Output Total 0 / 500 1900 / 1900 Balance 0 / 940 960 / 960 -1180 / -220 Weight last 48 hrs Weight 95.453 kg Weight 91.58 kg Physical Exam Const: COMMON NORMALS: no acute distress, patient oriented x3 and alert GENERAL APPEARANCE: cooperative, comfortable and anxious ORIENTATION/CONSCIOUSNESS: Yes awake OTHER: High flow cannula in place. She speaks in full sentences. HENMT: COMMON NORMALS: oropharynx normal Neck/C-Spine: COMMON NORMALS: no JVD Resp: COMMON NORMALS: normal respiratory effort and clear to auscultation bilaterally AUSCULTATION: clear to auscultation bilaterally Cardio: COMMON NORMALS: no JVD, regular rhythm, S1 normal heart sound present, S2 normal heart sound present and No murmurs present (Cardio) RHYTHM: regular rhythm HEART SOUNDS: S1 normal heart sound present and S2 normal heart sound present GI: COMMON NORMALS: Normal to inspection, nondistended, normoactive bowel sounds present, Soft to palpation and non-tender PALPATION: Yes Soft to palpation Extremity: COMMON NORMALS: no joint enlargement and no pedal edema Neuro: COMMON NORMALS: patient oriented x3 and moves all extremities SENSORIUM/ORIENTATION: Yes alert Skin: COMMON NORMALS: no rashes or lesions noted GENERAL SKIN EXAM: no rashes or lesions noted Data : 03/30/20 04:45 03/30/20 04:45 A&P Assessment and plan (1) Acute respiratory failure with hypoxia: As she declines continuation of care at LTAC, continue monitoring O2 support as tolerating. She appears to be slowly improving, discussed with her that weaning down take some time before she is able to sleep discharge. She reports understanding and agreement and is wanting to continue care here. She understands it may be difficult for us to predict how much longer she needs to be here before discharge. Continue to gradually wean down oxygen support as tolerating. Continues on Decadron oral dose. Prone positioning as tolerating. Continue flutter valve and incentive spirometry. Continue DuoNeb. Budesonide. Eliquis. Status: Acute (2) Pneumonia due to COVID-19 virus: As above. CRP decreasing. Status: Acute (3) Sepsis: Sepsis 2/2 PNA/UTI Resolving. Status: Acute (4) HTN (hypertension): At goal. Status: Acute Additional A&P Information Continue with Ativan 0.5 twice daily for anxiety. Attestations Medical Necessity Statement*: Continue admission versus management of oxygen following severe COVID-19 Coding Level of Care Code Acute [facility] Conversion [facility] Diagnoses Acute respiratory failure with hypoxia J96.01 Pneumonia due to COVID-19 virus U07.1; J12.89 Sepsis A41.9 HTN (hypertension) I10
[2020-03-31] MEDS: LORazepam 1 mg Tablet PO (22:41)
[2020-04-01] VITALS (20 sets, daily range): BP systolic 105–144; BP diastolic 73–96; PULSE 68–95; RESP 18–28; TEMP 36.3–37.1; O2SAT 83–95
[2020-04-01 05:21] LABS: C Reactive Protein 8.2 mg/L (0.0-4.9)
[2020-04-01] MEDS: ascorbic acid 500 mg Tablet 1000 MG PO ×2 (08:34→17:28)
[2020-04-01] MEDS: LORazepam 0.5 mg Tablet PO ×2 (08:34→17:28)
[2020-04-01] MEDS: ferrous gluconate 324 mg Tablet PO ×2 (08:34→17:28)
[2020-04-01] MEDS: zinc gluconate 50 mg Tablet PO (08:34)
[2020-04-01] MEDS: metoprolol tartrate 25 mg Tablet PO ×2 (08:35→21:24)
[2020-04-01] MEDS: dexamethasone 4 mg Tablet PO (08:35)
[2020-04-01] MEDS: apixaban 5 mg Tablet PO ×2 (08:35→17:27)
[2020-04-01] MEDS: ipratropium-albuterol 3 mL Neb INHALATION ×5 (08:53→23:49)
[2020-04-01] MEDS: budesonide 0.5 mg/2 mL Neb INHALATION ×2 (08:54→21:13)
--- NOTE | 2020-04-01 13:51 | PC.RESP ---
Mar did not save pts 1200 meds.
--- NOTE | 2020-04-01 20:52 | P.PN_ITS ---
Subjective Subjective: Interval history: She started to progressively feel better. She is starting get up and get around in her room. Oxygenation gradually improving with decreasing oxygen requirement. She is quite happy with how she is doing with oxygen pendant and is extremely excited that it may allow her to return home soon as she says she is starting to feel much much better. No chest pain, pressure, no cough. No headache, nausea vomiting or diarrhea. Remains afebrile. Vitals/I&O/Wt Last Vital Signs Temp 97.4 F L 04/01/20 16:00 Pulse 93 04/01/20 16:00 Resp 18 04/01/20 16:00 BP 124/96 04/01/20 16:00 Pulse Ox 92 04/01/20 16:00 04/01/20 04/01/20 04/01/20 06:59 14:59 22:59 Intake Total 1200 / 1200 720 / 1920 Output Total 1000 / 2900 Balance -1000 / -1220 1200 / 1200 720 / 1920 Weight last 48 hrs Weight 97.6 kg Weight 95.453 kg Physical Exam Const: COMMON NORMALS: no acute distress, patient oriented x3 and alert GENERAL APPEARANCE: cooperative, comfortable and anxious ORIENTATION/CONSCIOUSNESS: Yes awake OTHER: High flow cannula in place. She speaks in full sentences. HENMT: COMMON NORMALS: oropharynx normal Neck/C-Spine: COMMON NORMALS: no JVD Resp: COMMON NORMALS: normal respiratory effort and clear to auscultation bilaterally AUSCULTATION: clear to auscultation bilaterally Cardio: COMMON NORMALS: no JVD, regular rhythm, S1 normal heart sound present, S2 normal heart sound present and No murmurs present (Cardio) RHYTHM: regular rhythm HEART SOUNDS: S1 normal heart sound present and S2 normal heart sound present GI: COMMON NORMALS: Normal to inspection, nondistended, normoactive bowel sounds present, Soft to palpation and non-tender PALPATION: Yes Soft to palpation Extremity: COMMON NORMALS: no joint enlargement and no pedal edema Neuro: COMMON NORMALS: patient oriented x3 and moves all extremities SENSORIUM/ORIENTATION: Yes alert Skin: COMMON NORMALS: no rashes or lesions noted GENERAL SKIN EXAM: no rashes or lesions noted Data : 03/30/20 04:45 03/30/20 04:45 A&P Assessment and plan (1) Acute respiratory failure with hypoxia: Hypoxic respiratory failure continue to improve. She so far has done well slowly decreasing oxygen requirement. Still on 50% FiO2, however, down to 8 L reservoir cannula. Says she is feeling very well with oxy pendant cannula. If she continues to improve, perhaps may be able to return home to continue recovery there. She is very excited about this possibility. States she has been getting up and around in her room in anticipation of returning home. Continue to gradually wean down oxygen support as tolerating. We will have Decadron dose. Prone positioning as tolerating. Continue flutter valve and incentive spirometry. Continue DuoNeb. Budesonide. Eliquis. Status: Acute (2) Pneumonia due to COVID-19 virus: As above. CRP decreasing. Status: Acute (3) Sepsis: Sepsis 2/2 PNA/UTI Resolving. Status: Acute (4) HTN (hypertension): At goal. Status: Acute Additional A&P Information Continue with Ativan 0.5 twice daily for anxiety. Attestations Medical Necessity Statement*: Gradually continues to improve. Requires continued hospitalization for slow to improve hypoxic respiratory failure after severe COVID-19 infection, persistent need for high FiO2, however, if continues to improve may be able to return home, possibly tomorrow. Coding Level of Care Code Acute Agronomy Location Manager for [facility] Diagnoses Acute respiratory failure with hypoxia J96.01 Pneumonia due to COVID-19 virus U07.1; J12.89 Sepsis A41.9 HTN (hypertension) I10
[2020-04-02] VITALS (15 sets, daily range): BP systolic 100–138; BP diastolic 68–95; PULSE 67–90; RESP 16–27; TEMP 36.4–36.9; O2SAT 80–96
[2020-04-02] MEDS: budesonide 0.5 mg/2 mL Neb INHALATION (08:38)
[2020-04-02] MEDS: ipratropium-albuterol 3 mL Neb INHALATION ×2 (08:38→11:59)
[2020-04-02] MEDS: zinc gluconate 50 mg Tablet PO (08:55)
[2020-04-02] MEDS: ascorbic acid 500 mg Tablet 1000 MG PO (08:55)
[2020-04-02] MEDS: dexamethasone 4 mg Tablet 2 MG PO (08:56)
[2020-04-02] MEDS: ferrous gluconate 324 mg Tablet PO (08:56)
[2020-04-02] MEDS: apixaban 5 mg Tablet PO (08:56)
[2020-04-02] MEDS: metoprolol tartrate 25 mg Tablet PO (08:57)
--- NOTE | 2020-04-02 16:14 | PM.DCS ---
Discharge Providers Date of Admission: 03/20/20 19:50 Date of Discharge: April 02, 2020 Attending Provider at Admission: Martin Hernandez MD Attending Provider at Discharge: Carlos Manuel Chowdary Primary Care Provider: BRAULIO Hughes Diagnoses at Discharge Discharge Diagnosis (1) Acute respiratory failure with hypoxia: Status: Acute (2) Pneumonia due to COVID-19 virus: Status: Acute (3) Sepsis: Status: Acute (4) HTN (hypertension): Status: Acute Reason for Visit Reason for Visit: covid pneumonia Hospital Course Hospital Course Pleasant 64-year-old lady with past medical history of HTN, intermittent headache, SVT was admitted for assessment of management of severe Covid pneumonia, with hypoxic respiratory failure. She was assessed by CTA on presentation and PE was ruled out. Incidentally noted chronic severe centrilobular emphysema. Please follow-up on this after she recovers. In the hospital she was treated with a course of remdesivir, Decadron. She was empirically treated with Eliquis due to initially noted mild elevation of D-dimer above normal with concern for elevated risk of VTE. This had subsequently normalized. She was initially treated also empirically with antibiotic for possible superimposed bacterial pneumonia, and UTI. Oxygenation was slow to improve, requiring high amounts of oxygen, up to 90% FiO2 requirement. With her condition made intermittently more difficult with episodes of anxiety for which she was receiving intermittent as needed low-dose Ativan. She completed remdesivir. Oxygenation gradually started to improve. Decadron dosing has been gradually reduced. Her oxygenation now is showing more significant improvement. She weaned down to as low as 50% FiO2 on 8 L reservoir nasal cannula. She is requesting to return home, and prefers not to stay in hospital longer. Arrangements for additional weaning of oxygen at LTAC were offered, however, she had declined, and was quite adamant that she was returning home. She overall is continuing to improve. Her CRP had continued to decline. She is feeling much better and she has been getting up and walking around in her room. She has regained a great deal of her energy, and request to go home today. She qualifies for oxygen on home O2 evaluation and this is being arranged for her at discharge. We discussed at length red flags to watch for which should prompt her to call 911 immediately, and she understands that her condition may still worsen, possibly suddenly, and and knows to seek help without delay in case of any concerns. Since she remains afebrile, without other symptoms of COVID-19, with only persistent gradually improving hypoxia, and she has been more than 20 days from the onset of her illness, she most likely no longer needs to continue isolation at discharge. Since her D-dimer had normalized, and she is becoming more and more active, her risk of VTE is quite reduced, and so anticoagulation is not continued at discharge to reduce risks of bleeding. Please see full diagnostic studies and notes from the hospitalization for details. Do not hesitate to reach out with any questions. Physical Exam Const: COMMON NORMALS: no acute distress, patient oriented x3 and alert GENERAL APPEARANCE: cooperative and comfortable ORIENTATION/CONSCIOUSNESS: Yes awake OTHER: Speaking full sentences. Brain atretic. Talkative. Request to go home. States she is feeling very well. HENMT: COMMON NORMALS: oropharynx normal Neck/C-Spine: COMMON NORMALS: no JVD Resp: COMMON NORMALS: normal respiratory effort and clear to auscultation bilaterally AUSCULTATION: clear to auscultation bilaterally Cardio: COMMON NORMALS: no JVD, regular rhythm, S1 normal heart sound present, S2 normal heart sound present and No murmurs present (Cardio) RHYTHM: regular rhythm HEART SOUNDS: S1 normal heart sound present and S2 normal heart sound present GI: COMMON NORMALS: Normal to inspection, nondistended, normoactive bowel sounds present, Soft to palpation and non-tender PALPATION: Yes Soft to palpation Extremity: COMMON NORMALS: no joint enlargement and no pedal edema Neuro: COMMON NORMALS: patient oriented x3 and moves all extremities SENSORIUM/ORIENTATION: Yes alert Skin: COMMON NORMALS: no rashes or lesions noted GENERAL SKIN EXAM: no rashes or lesions noted Discharge Data Data Completed and Pending: Completed Studies During Hospitalization Category Date Time Status CT angio chest PE protcl [id number] Rout ine Cat Scan 03/26/20 14:[address] angio chest PE protcl [id number] Stat Cat Scan 03/20/20 22:30 Completed XR chest 1V aryan ble [id number] Q48H Exams 03/24/20 06:00 Completed XR chest 1V aryan ble 33284 Q48H Exams 03/26/20 06:00 Completed XR chest 1V aryan ble 97550 Q48H Exams 03/28/20 06:00 Completed XR chest 1V aryan ble [id number] Routine Exams 03/21/20 06:08 Completed XR chest 1V aryan ble [id number] Routine Exams 03/23/20 06:20 Completed CV echo complete* [id number] Routine Ultrasound 03/23/20 13:58 [place] [id number] Routin e Ultrasound 03/21/20 10:53 Completed Vitals: Last Vital Signs Temp 97.6 F 04/02/20 12:00 Pulse 82 04/02/20 16:08 Resp 20 H 04/02/20 16:08 BP 123/85 04/02/20 12:00 Pulse Ox 91 04/02/20 16:08 Discharge Plan Discharge Patient Disposition: Home Condition: Stable Prescriptions: New Ventolin HFA 90 mcg/actuation Hfa Aerosol Inhaler 2 puff inhalation Q4H.RESPIRATORY PRN (Reason: Shortness Of Breath) Qty: 8.5 RF: 0 Decadron 0.5 mg tablet 0.5 mg PO DAILY Qty: 14 RF: 0 zinc gluconate 50 mg Tablet 50 mg PO DAILY Qty: 14 RF: 0 Continued melatonin 5 mg Tablet 5 mg PO BEDTIME RF: 0 loratadine 10 mg Tablet 10 mg PO BEDTIME RF: 0 Vitamin D3 125 mcg (5,000 unit) Tablet 125 mcg PO DAILY RF: 0 Colace 100 mg Capsule 100 mg PO DAILY RF: 0 Changed lisinopril 20 mg tablet 10 mg PO BID Qty: 0 RF: 0 Discharge Orders: Discharge Order (Routine); Ordered 04/02/20 Ordered By: Carlos Manuel Chowdary Other Ambulatory Orders: DME: Oxygen (Order) Location: None Selected Ordered By: Carlos Manuel Chowdary Referrals: [facility] [Outside] Winter Schmidt FNP [Primary Care Provider] - 4-7 days Discharge Diet: Cardiac Discharge Activity: Oxygen as instructed Activity Restrictions/Additional Instructions: Please maintain oxygen on. Monitor saturation several times a day, target saturation 90-92% at rest. Please work with your primary care doctor with regards to further decreasing the amount of oxygen used, as her oxygen requirement hopefully should continue to improve with your recovery. If oxygen saturation starts decreasing, staying below 88-90%, if you start experiencing extreme shortness of breath, chest pain or pressure, or other concerning symptoms, please call 911 immediately. You may continue taking vitamin D3, zinc and vitamin C while you are recovering. Please monitor your blood pressure at home several times a day. Continue work with your primary care doctor to optimize blood pressure control. Please discuss with your primary care doctor incidentally seen in chronic emphysema of your lung imaging. This may benefit from additional evaluation by pulmonary function testing once you are recovered from coronavirus pneumonia. 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
== END 2020-04-02 17:45 | disposition home or self-care (01) | DRG 871 ==
PROVIDERS: Student in an Organized Health Care Education/Training Program; Admitting Provider Internal Medicine; PCP Registered Nurse; Visit Provider Internal Medicine
DX: A41.9 Sepsis, unspecified organism (principal); U07.1 COVID-19; J12.82 Pneumonia due to coronavirus disease 2019; J96.01 Acute respiratory failure with hypoxia; J15.9 Unspecified bacterial pneumonia; E87.1 Hypo-osmolality and hyponatremia; I47.1 Supraventricular tachycardia; N39.0 Urinary tract infection, site not specified; I10 Essential (primary) hypertension; Z87.891 Personal history of nicotine dependence; J43.2 Centrilobular emphysema
CPT/HCPCS: 12345; 36415; 36430; 36600; 71045; 71275; 80051; 80053; 80061; 81001; 82330; 82550; 82728; 82805; 83036; 83540; 83550; 83605; 83615; 83735; 83880; 84145; 84443; 85025; 85378; 85384; 85610; 85651; 86140; 86403; 86900; 86927; 87040; 87070; 87086; 87205; 87449; 87641; 93306; 93970; 94640; 96375; J0692; J1100; J1650; J1940; J1956; J2270; J2405; J3535; J7614; J7626; J8540; P9017; Q9967

== ENCOUNTER 2021-06-04 09:12 | Outpatient (CLI) | payer OTHER, SELFPAY ==
--- NOTE | 2021-06-04 09:23 | NM_ITS ---
WS: [id number] NUCLEAR MEDICINE HIDA SCAN CLINICAL INFORMATION: ACUTE RLQ ABDOMINAL PAIN/NAUSEA VOMITING TECHNIQUE: Following intravenous administration of 8.4 mCi of technetium 99m mebrofenin, images of th e abdomen were obtained over the course of 60 minutes. Next, gallbladder ejection fraction was determ ined by obtaining preprandial and one-hour postprandial images of the gallbladder following oral cole stion of Ensure. COMPARISON: None. FINDINGS: Hepatomegaly. Normal hepatic uptake at 5 minutes. Normal hepatic excretion. Normal common bile duct a nd small bowel activity. Gallbladder is visualized by 60 minutes. No evidence of acute cholecystitis. Gallbladder ejection fraction 90% within normal limits. No evidence of chronic cholecystitis. NM/NM hepatobiliary w phar* [id number] IMPRESSION: 1. No evidence of acute or chronic cholecystitis. 2. Gallbladder ejection fraction 90% within normal limits. 3. Hepatomegaly.
== END 2021-06-04 09:13 | disposition home or self-care (01) ==
LOC: RAD 09:13
PROVIDERS: PCP Registered Nurse; Visit Provider Registered Nurse
DX: R10.31 Right lower quadrant pain (principal); R11.2 Nausea with vomiting, unspecified; R16.0 Hepatomegaly, not elsewhere classified
CPT/HCPCS: 78227; A9537